=== PATIENT | male | born 1955 | race Caucasian/White ===

== ENCOUNTER 2017-06-29 00:47 | Emergency (ER) | payer MEDICARE, MEDICAID ==
[~2017-06-29] VITALS: Ht 175.3 cm; Wt 79.8 kg
[2017-06-29] MEDS ORDERED: LISINOPRIL5 MG ORAL (00:57)
[2017-06-29] MEDS ORDERED: ATRIPLA TABLET1 EAC1 ORAL (00:58)
[2017-06-29 00:59] VITALS: BP 149/86
[2017-06-29] MEDS ORDERED: PREDNISONE20 MG ORAL (01:50)
[2017-06-29] MEDS ORDERED: PROMETHAZINE-C118 M1 ORAL (01:50)
--- NOTE | 2017-06-29 01:50 | Emergency Room Report ---
History of Present Illness General Chief Complaint: Sore Throat Source: Patient Present Illness [facility] This is a 61-year-old male with no past medical history. He presents with chief complaint of cough and sore throat for the last 3 or 4 days. He seen his primary care Dr. emanuel. He has old cough but is at home was not helping. She been taking hydrocodone and Motrin without helping. Denies any fever or chills. Worse with swallowing coughing. Coughing is nonproductive in nature. Also losing his voice. Also has congestion from his deviated septum surgery. Pain is 9/10. Worse with eating and drinking. Allergies: Coded Allergies: No Known Allergies (Unverified , 06/29/17) Patient History Past Medical History: see triage record, old chart reviewed Past Surgical History: other Pertinent Family History: none Social History: Denies: smoking Immunizations: other Reviewed Nursing Documentation: PMH: Agreed, PSxH: Agreed Nursing Documentation-PMH Hx Hypertension: Yes Review of Systems Eye: Denies: eye pain, blurred vision ENT: Reports: throat pain, Denies: ear pain, nose congestion, throat swelling Respiratory: Reports: cough, Denies: shortness of breath Cardiovascular: Denies: chest pain, palpitations Gastrointestinal: Denies: abdominal pain, diarrhea, nausea, vomiting Musculoskeletal: Denies: back pain, joint pain Skin: Denies: rash Neurological: Denies: headache, numbness Endocrine: Denies: increased thirst, increased urine Hematologic/Lymphatic: Denies: easy bruising All Other Systems: negative except mentioned in HPI Physical Exam Vital Signs Date Time Temp Pulse Resp B/P (MAP) Pulse Ox O2 Delivery O2 Flow Rate FiO2 06/29/17 00:50 98.1 98 16 149/86 99 Room Air vitals normal Sp02 EP Interpretation: reviewed, normal General Appearance: well appearing, no apparent distress, alert Head: normocephalic, atraumatic Eyes: bilateral eye PERRL, bilateral eye EOMI ENT: hearing grossly normal, normal pharynx Neck: full range of motion, supple, no meningismus Respiratory: chest non-tender, lungs clear, normal breath sounds Cardiovascular #1: regular rate, rhythm, no murmur Gastrointestinal: normal bowel sounds, non tender, no mass, no organomegaly, no bruit, non-distended Musculoskeletal: back normal, gait/station normal, normal range of motion Psychiatric: mood/affect normal Skin: warm/dry Medical Decision Making Diagnostic Impression: Primary Impression: Sore throat Additional Impression: URI (upper respiratory infection) Qualified Codes: J06.9 - Acute upper respiratory infection, unspecified; B97.89 - Other viral agents as the cause of diseases classified elsewhere ER Course Patient with a viral upper respiratory infection. No evidence of any strep based on clinical exam. He has no fever. He has no tonsillar exudates or hypertrophy. He also has coughing congestion. This points toward a viral etiology. He started taking medicine for cough but he said his 2-3 years old. We'll write for new prescription. he also has an inhaler at home already.No evidence of bacterial infection. We'll discharge home. Last Vital Signs Date Time Temp Pulse Resp B/P (MAP) Pulse Ox O2 Delivery O2 Flow Rate FiO2 06/29/17 00:59 98.1 98 16 149/86 99 Room Air Status: improved Disposition: HOME, SELF-CARE Condition: Stable Scripts Prednisone* (PREDNISONE*) 20 Mg Tablet 60 MG ORAL DAILY, #15 TAB Prov: HAYDEN HUBER M.D. 06/29/17 Codeine/Promethazine Hcl* (PROMETHAZINE-CODEINE SYRUP*) 118 Ml Syrup 10 ML ORAL Q6H Y for For Cough, #120 ML 0 Refills Prov: HAYDEN HUBER M.D. 06/29/17 Additional Instructions: Followup with your DrKatelyn in 7 days. Return if worse. HAYDEN HUBER M.D. Jun 29, 2017 01:50
[2017-06-29 01:58] VITALS: BP 149/86
== END 2017-06-29 01:58 | disposition home or self-care (01) ==
LOC: EMR 01:31
DX: J02.9 Acute pharyngitis, unspecified (principal); J06.9 Acute upper respiratory infection, unspecified; I10 Essential (primary) hypertension
CPT/HCPCS: 99283

== ENCOUNTER 2017-12-14 18:45 | Inpatient (IN) | payer MEDICAID, MEDICARE ==
[~2017-12-14] VITALS: Ht 172.7 cm; Wt 77.1 kg
[~2017-12-14 18:45] MED LIST: ATRIPLA TABLET1 EAC1 ORAL; LISINOPRIL5 MG ORAL; PREDNISONE20 MG ORAL; PROMETHAZINE-C118 M1 ORAL
[2017-12-14 19:02] VITALS: BP 103/62
[2017-12-14] MEDS ORDERED: Piperacillin/Tazobactam 3.375 GM in NS 110 ML IVPB ONE (19:15)
[2017-12-14 20:08] LABS: BASOPHILS % (AUTO) 0.6 % (0.0-2.0); EOSINOPHILS % (AUTO) 0.5 % (0.0-3.0); HEMATOCRIT 34.4 % (42.0-52.0); HEMOGLOBIN 12.1 G/DL (14.2-18.0); LYMPHOCYTES % (AUTO) 18.5 % (20.0-45.0); MEAN CORPUSCULAR VOLUME 96 FL (80-99); MONOCYTES % (AUTO) 11.5 % (1.0-10.0); NEUTROPHILS % (AUTO) 68.9 % (45.0-75.0); PLATELET COUNT 280 K/UL (150-450); RED BLOOD COUNT 3.58 M/UL (4.70-6.10); RED CELL DISTRIBUTION WIDTH 10.6 % (11.6-14.8); WHITE BLOOD COUNT 14.7 K/UL (4.8-10.8)
[2017-12-14 20:13] LABS: ANION GAP 13 mmol/L (5-15); BLOOD UREA NITROGEN 31 mg/dL (7-18); CALCIUM 9.2 MG/DL (8.5-10.1); CARBON DIOXIDE 18 MMOL/L (21-32); CHLORIDE 103 MMOL/L (98-107); CREATININE 2.4 MG/DL (0.55-1.30); SODIUM 134 MMOL/L (136-145)
[2017-12-14 20:18] LABS: ALANINE AMINOTRANSFERASE 18 U/L (12-78); ALBUMIN 3.5 G/DL (3.4-5.0); ALBUMIN/GLOBULIN RATIO 0.7 (1.0-2.7); ALKALINE PHOSPHATASE 94 U/L (46-116); ASPARTATE AMINO TRANSFERASE 13 U/L (15-37); BILIRUBIN,TOTAL 0.4 MG/DL (0.2-1.0)
[2017-12-14 20:40] LABS: APPEARANCE,URINE SLIGHTLY CLOUDY; BILIRUBIN, URINE NEGATIVE (NEGATIVE); GLUCOSE, URINE (UA) NEGATIVE (NEGATIVE); KETONES,URINE NEGATIVE (NEGATIVE); LEUKOCYTE ESTERASE ,URINE 3+ (NEGATIVE); NITRITE,URINE POSITIVE (NEGATIVE); PH,URINE 5 (4.5-8.0); PROTEIN,URINE 2+ (NEGATIVE); UROBILINOGEN,URINE NORMAL MG/DL (0.0-1.0)
[2017-12-14 20:41] LABS: COLOR,URINE YELLOW
--- NOTE | 2017-12-14 20:41 | Emergency Room Report ---
History of Present Illness General Chief Complaint: Male Urogenital Problems Source: Patient, Medical Record Present Illness HPI 62-year-old male presents ED for evaluation. Patient is here for IV antibiotics. Patient states that he was recently diagnosed with UTI but culture results show multidrug resistance and he was asked to come to the ER for IV antibiotics by his PMD. Denies fevers or chills. Denies flank pain nausea or vomiting. States he was feeling very weak last week and did not drink many fluids. No other aggravating relieving factors. Denies any other associated symptoms Allergies: Coded Allergies: No Known Allergies (Unverified , 06/29/17) Patient History Past Medical History: HTN Past Surgical History: none Pertinent Family History: none Social History: Denies: smoking, alcohol use, drug use Immunizations: UTD Reviewed Nursing Documentation: PMH: Agreed; PSxH: Agreed Nursing Documentation-PMH Past Medical History: No History, Except For Hx Hypertension: Yes Review of Systems All Other Systems: negative except mentioned in HPI Physical Exam Vital Signs Date Time Temp Pulse Resp B/P (MAP) Pulse Ox O2 Delivery O2 Flow Rate FiO2 12/14/17 18:52 97.3 73 18 103/62 96 Room Air 97.3 Sp02 EP Interpretation: reviewed, normal General Appearance: no apparent distress, alert, GCS 15, non-toxic Head: normocephalic, atraumatic Eyes: bilateral eye normal inspection, bilateral eye PERRL ENT: hearing grossly normal, normal pharynx, no angioedema, normal voice Neck: full range of motion, supple/symm/no masses Respiratory: chest non-tender, lungs clear, normal breath sounds, speaking full sentences Cardiovascular #1: regular rate, rhythm, no edema Cardiovascular #2: 2+ carotid (R), 2+ carotid (L), 2+ radial (R), 2+ radial (L) , 2+ dorsalis pedis (R), 2+ dorsalis pedis (L) Gastrointestinal: normal bowel sounds, non tender, soft, non-distended, no guarding, no rebound Rectal: deferred Genitourinary: normal inspection, no CVA tenderness Musculoskeletal: back normal, gait/station normal, normal range of motion, non- tender Neurologic: alert, oriented x3, responsive, motor strength/tone normal, sensory intact, speech normal Psychiatric: judgement/insight normal, memory normal, mood/affect normal, no suicidal/homicidal ideation Reflexes: 3+ bicep (R), 3+ bicep (L), 3+ tricep (R), 3+ tricep (L), 3+ knee (R) , 3+ knee (L) Skin: normal color, no rash, warm/dry, well hydrated Lymphatic: no adenopathy Medical Decision Making Diagnostic Impression: Primary Impression: ESBL (extended spectrum beta-lactamase) producing bacteria infection Additional Impressions: UTI (urinary tract infection) Qualified Codes: N39.0 - Urinary tract infection, site not specified Renal insufficiency ER Course Hospital Course 62-year-old male presenting to ED with generalized weakness, sent here for IV antibiotics Differential diagnoses include: Pneumonia, UTI, sepsis, dehydration, CO/ unstable angina Clinical course Patient placed on stretcher. On front desk monitor with stable vitals are ED course. After initial history and physical, I reviewed patient's culture results. Showed ESBL growing greater than 100,000. Shows sensitivity to few indications including cefepime, Zosyn, ertapenem, imipenem I ordered labs, IV fluids, blood cx, UA Labs - BUN/Cr elevated, noted leukocytosis Given the renal insufficiency, given that patient would require repeat visits to the ED for IV antibiotics I believe it is in patient's best interest to be admitted. Spoke to PMD Dr. Means and he agreed IV Zosyn given. Case discussed with Dr Ghosh and they agreed to admit patient to their service for further care and support I feel this is a highly complex case requiring extensive working including EKG/ Rhythm strip, Xray/CT/US, Blood/urine lab work, repeat exams while in ED, and administration of strong opiates/narcotics for pain control, admission to hospital or close patient follow up. Diagnosis - ESBL, UTI, Renal insufficiency Patient admitted to floor in serious condition Labs Test 12/14/17 19:51 12/14/17 20:30 White Blood Count 14.7 K/UL (4.8-10.8) Red Blood Count 3.58 M/UL (4.70-6.10) Hemoglobin 12.1 G/DL (14.2-18.0) Hematocrit 34.4 % (42.0-52.0) Mean Corpuscular Volume 96 FL (80-99) Mean Corpuscular Hemoglobin 33.8 PG (27.0-31.0) Mean Corpuscular Hemoglobin Concent 35.3 G/DL (32.0-36.0) Red Cell Distribution Width 10.6 % (11.6-14.8) Platelet Count 280 K/UL (150-450) Mean Platelet Volume 5.5 FL (6.5-10.1) Neutrophils (%) (Auto) 68.9 % (45.0-75.0) Lymphocytes (%) (Auto) 18.5 % (20.0-45.0) Monocytes (%) (Auto) 11.5 % (1.0-10.0) Eosinophils (%) (Auto) 0.5 % (0.0-3.0) Basophils (%) (Auto) 0.6 % (0.0-2.0) Sodium Level 134 MMOL/L (136-145) Potassium Level 4.0 MMOL/L (3.5-5.1) Chloride Level 103 MMOL/L (98-107) Carbon Dioxide Level 18 MMOL/L (21-32) Anion Gap 13 mmol/L (5-15) Blood Urea Nitrogen 31 mg/dL (7-18) Creatinine 2.4 MG/DL (0.55-1.30) Estimat Glomerular Filtration Rate 27.8 mL/min (>60) Glucose Level 118 MG/DL (74-106) Calcium Level 9.2 MG/DL (8.5-10.1) Total Bilirubin 0.4 MG/DL (0.2-1.0) Aspartate Amino Transf (AST/SGOT) 13 U/L (15-37) Alanine Aminotransferase (ALT/SGPT) 18 U/L (12-78) Alkaline Phosphatase 94 U/L (46-116) Total Protein 8.6 G/DL (6.4-8.2) Albumin 3.5 G/DL (3.4-5.0) Globulin 5.1 g/dL Albumin/Globulin Ratio 0.7 (1.0-2.7) Last Vital Signs Date Time Temp Pulse Resp B/P (MAP) Pulse Ox O2 Delivery O2 Flow Rate FiO2 12/14/17 19:02 97.3 73 18 103/62 96 Room Air 97.3 Status: improved Disposition: ADMITTED INPATIENT Condition: Serious Referrals: NON PHYSICIAN (PCP) Bert Peacock MD December 14, 2017 20:41
[2017-12-14 21:00] VITALS: BP 118/74
[2017-12-14 21:50] VITALS: BP 116/66
[2017-12-14] MEDS ORDERED: Norco 5mg/325mg tab ORAL PRN (22:45)
[2017-12-14] MEDS ORDERED: HYDROcodone/Acetamin 10/325 tab ORAL PRN (22:45)
[2017-12-15] VITALS: BP 114/72
[2017-12-15] MEDS: Lisinopril 2.5mg tab ORAL SCH ×2 (00:16→20:24)
[2017-12-15] MEDS ORDERED: AMBIEN5 MG ORAL (00:38)
[2017-12-15] MEDS: Zolpidem 5mg tab ORAL PRN (01:07)
[2017-12-15] MEDS: Zoysn 3.37gm in NS 100ML IVPB SCH ×2 (03:58→12:34)
[2017-12-15 04:00] VITALS: BP 116/67
[2017-12-15 07:44] LABS: BASOPHILS % (AUTO) 0.5 % (0.0-2.0); EOSINOPHILS % (AUTO) 0.3 % (0.0-3.0); HEMATOCRIT 32.9 % (42.0-52.0); HEMOGLOBIN 11.4 G/DL (14.2-18.0); LYMPHOCYTES % (AUTO) 18.3 % (20.0-45.0); MEAN CORPUSCULAR VOLUME 98 FL (80-99); PLATELET COUNT 263 K/UL (150-450); RED BLOOD COUNT 3.36 M/UL (4.70-6.10); RED CELL DISTRIBUTION WIDTH 10.6 % (11.6-14.8); WHITE BLOOD COUNT 12.9 K/UL (4.8-10.8)
[2017-12-15 08:00] VITALS: BP 103/65
[2017-12-15 08:01] LABS: ANION GAP 12 mmol/L (5-15); BLOOD UREA NITROGEN 29 mg/dL (7-18); CALCIUM 8.9 MG/DL (8.5-10.1); CARBON DIOXIDE 20 MMOL/L (21-32); CHLORIDE 103 MMOL/L (98-107); CREATININE 2.3 MG/DL (0.55-1.30); POTASSIUM 4.4 MMOL/L (3.5-5.1); SODIUM 135 MMOL/L (136-145)
[2017-12-15] MEDS: Docusate 100mg cap ORAL SCH ×2 (09:21→17:49)
[2017-12-15] MEDS: Heparin 5000 units/ml inj SUBQ SCH ×2 (09:22→20:25)
--- NOTE | 2017-12-15 09:23 | Consultation ---
Consult Note Assessment/Plan DICT # [id number] JOEY GUTIERREZ M.D. December 15, 2017 09:23
--- NOTE | 2017-12-15 10:57 | Consultation ---
Consult Note Assessment/Plan Renal consult dictated # [id number] Sriram Tesfaye MD December 15, 2017 10:57
--- NOTE | 2017-12-15 11:15 | Diagnostic Imaging Report ---
Indication: Chest pain Technique: One view of the chest Comparison: none Findings: Lungs and pleural spaces are clear. Heart size is normal. Inspiration is somewhat suboptimal Impression: No acute process
[2017-12-15 12:00] VITALS: BP 116/64
[2017-12-15] MEDS ORDERED: CYMBALTA60 MG ORAL (12:49)
--- NOTE | 2017-12-15 15:09 | History and Physical ---
History of Present Illness General Date patient seen: December 15, 2017 Reason for Hospitalization: Male Urogenital Problems Present Illness HPI This is a 62 y/o male with a PMH of HIV (viral load undetectable, CD 4>1000) who presents to the ED for ESBL UTI. Patient states that he had gone to his PCP for dysuria and was diagnosed with a UTI. Urine culture came back positive for ESBL, which was sensitive to carbapenams. Patient was advised to come to the ED for further evaluation. Patient was started on IV zosyn and IVF. Patient was also noted to have an elevated Cr with an unknown baseline. Patient is currently compliant with his HIV medications. Denies chest pain, sob, dysuria, hematuria, flank pain, n/v, abdominal pain. Reports history of bilateral nephrolithiasis, which passed on their own. PMH: HIV PSxH: none Allergies: Coded Allergies: No Known Allergies (Unverified , 06/29/17) Medication History Scheduled Duloxetine Hcl* (Cymbalta*), 60 MG ORAL QHS, (Reported) Efavirenz/Emtricitab/Tenofovir (Atripla), 1 TAB ORAL DAILY, (Reported) Lisinopril (Lisinopril*), 5 MG ORAL DAILY, (Reported) Prednisone* (Prednisone*), 60 MG ORAL DAILY Scheduled PRN Codeine/Promethazine Hcl* (Promethazine-Codeine Syrup*), 10 ML ORAL Q6H PRN for For Cough Zolpidem Tartrate* (Ambien*), 10 MG ORAL BEDTIME PRN for Insomnia, (Reported) Patient History History Provided By: Patient Healthcare decision maker Resuscitation status Advanced Directive on File Review of Systems All Other Systems: negative except mentioned in HPI Physical Exam General Appearance: no apparent distress, alert HEENT: normocephalic, atraumatic Neck: non-tender, normal alignment, supple Respiratory/Chest: chest wall non-tender, lungs clear, normal breath sounds Cardiovascular/Chest: normal peripheral pulses, normal rate, regular rhythm Abdomen: normal bowel sounds, non tender, soft Genitourinary/Rectal: other - no flank pain Extremities: normal range of motion, non-tender Skin Exam: normal pigmentation, warm/dry 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, no motor/sensory deficits, alert, oriented x 3 Last 24 Hour Vital Signs Date Time Temp Pulse Resp B/P (MAP) Pulse Ox O2 Delivery O2 Flow Rate FiO2 12/15/17 13:44 99.0 12/15/17 12:45 99.0 12/15/17 12:00 97.0 73 20 116/64 98 Room Air 97.0 12/15/17 08:00 97.7 86 20 103/65 95 Room Air 97.7 12/15/17 04:00 99.0 98 20 116/67 98 99.0 12/15/17 00:16 114/72 12/15/17 00:00 97.9 78 20 114/72 97 97.9 12/14/17 21:55 97.3 74 22 116/66 100 Room Air 97.3 12/14/17 21:50 74 22 116/66 100 Room Air 12/14/17 21:00 69 16 118/74 100 Room Air 12/14/17 19:02 97.3 73 18 103/62 96 Room Air 97.3 12/14/17 18:52 97.3 73 18 103/62 96 Room Air 97.3 Intake and Output 12/14/17 12/15/17 19:00 07:00 Intake Total 510 ml Balance 510 ml Intake Oral 300 ml IV Total 210 ml # Voids 3 Laboratory Tests Test 12/14/17 19:51 12/14/17 20:30 12/14/17 20:40 12/15/17 06:50 White Blood Count 14.7 K/UL (4.8-10.8) H 12.9 K/UL (4.8-10.8) H Red Blood Count 3.58 M/UL (4.70-6.10) L 3.36 M/UL (4.70-6.10) L Hemoglobin 12.1 G/DL (14.2-18.0) L 11.4 G/DL (14.2-18.0) L Hematocrit 34.4 % (42.0-52.0) L 32.9 % (42.0-52.0) L Mean Corpuscular Volume 96 FL (80-99) 98 FL (80-99) Mean Corpuscular Hemoglobin 33.8 PG (27.0-31.0) H 33.9 PG (27.0-31.0) H Mean Corpuscular Hemoglobin Concent 35.3 G/DL (32.0-36.0) 34.6 G/DL (32.0-36.0) Red Cell Distribution Width 10.6 % (11.6-14.8) L 10.6 % (11.6-14.8) L Platelet Count 280 K/UL (150-450) 263 K/UL (150-450) Mean Platelet Volume 5.5 FL (6.5-10.1) L 5.5 FL (6.5-10.1) L Neutrophils (%) (Auto) 68.9 % (45.0-75.0) 71.0 % (45.0-75.0) Lymphocytes (%) (Auto) 18.5 % (20.0-45.0) L 18.3 % (20.0-45.0) L Monocytes (%) (Auto) 11.5 % (1.0-10.0) H 10.0 % (1.0-10.0) Eosinophils (%) (Auto) 0.5 % (0.0-3.0) 0.3 % (0.0-3.0) Basophils (%) (Auto) 0.6 % (0.0-2.0) 0.5 % (0.0-2.0) Sodium Level 134 MMOL/L (136-145) L 135 MMOL/L (136-145) L Potassium Level 4.0 MMOL/L (3.5-5.1) 4.4 MMOL/L (3.5-5.1) Chloride Level 103 MMOL/L (98-107) 103 MMOL/L (98-107) Carbon Dioxide Level 18 MMOL/L (21-32) L 20 MMOL/L (21-32) L Anion Gap 13 mmol/L (5-15) 12 mmol/L (5-15) Blood Urea Nitrogen 31 mg/dL (7-18) H 29 mg/dL (7-18) H Creatinine 2.4 MG/DL (0.55-1.30) H 2.3 MG/DL (0.55-1.30) H Estimat Glomerular Filtration Rate 27.8 mL/min (>60) 29.2 mL/min (>60) Glucose Level 118 MG/DL (74-106) H 126 MG/DL (74-106) H Calcium Level 9.2 MG/DL (8.5-10.1) 8.9 MG/DL (8.5-10.1) Total Bilirubin 0.4 MG/DL (0.2-1.0) Aspartate Amino Transf (AST/SGOT) 13 U/L (15-37) L Alanine Aminotransferase (ALT/SGPT) 18 U/L (12-78) Alkaline Phosphatase 94 U/L (46-116) Total Protein 8.6 G/DL (6.4-8.2) H Albumin 3.5 G/DL (3.4-5.0) Globulin 5.1 g/dL Albumin/Globulin Ratio 0.7 (1.0-2.7) L Urine Color Yellow Urine Appearance Slightly cloudy Urine pH 5 (4.5-8.0) Urine Specific [place] 1.020 (1.005-1.035) Urine Protein 2+ (NEGATIVE) H Urine Glucose (UA) Negative (NEGATIVE) Urine Ketones Negative (NEGATIVE) Urine Occult Blood 3+ (NEGATIVE) H Urine Nitrite Positive (NEGATIVE) H Urine Bilirubin Negative (NEGATIVE) Urine Urobilinogen Normal MG/DL (0.0-1.0) Urine Leukocyte Esterase 3+ (NEGATIVE) H Urine RBC 2-4 /HPF (0 - 0) H Urine WBC 10-15 /HPF (0 - 0) H Urine Squamous Epithelial Cells None /LPF (NONE/OCC) Urine Amorphous Sediment Few /LPF (NONE) H Urine Bacteria Moderate /HPF (NONE) H Lactic Acid Level 0.60 mmol/L (0.66-2.22) L Microbiology Date/Time Source Procedure Growth Status 12/14/17 20:30 Indwelling Cath Urine Culture - Preliminary Gram Negative Bacillus 1 Resulted Height (Feet): 5 Height (Inches): 8.00 Weight (Pounds): 170 Medications Current Medications Medications (Trade) Dose Ordered Sig/Lorena Route PRN Reason Start Time Stop Time Status Last Admin Dose Admin Acetaminophen (Tylenol) 650 mg Q6H PRN ORAL Mild Pain/Temp > 100.5 12/14/17 22:45 01/13/18 22:44 Acetaminophen/ Hydrocodone Bitart ([place] 10/325) 1 tab Q4H PRN ORAL For Moderate Pain 12/15/17 14:28 12/22/17 14:27 Docusate Sodium (Colace) 100 mg TWICE A DAY ORAL 12/15/17 09:00 01/14/18 08:59 12/15/17 09:21 Ertapenem 1 gm/ Sodium Chloride 110 ml @ 220 mls/hr Q24H IVPB 12/15/17 16:00 12/16/17 15:59 Heparin Sodium (Porcine) (Heparin 5000 units/ml) 5,000 units EVERY 12 HOURS SUBQ 12/15/17 09:00 01/14/18 08:59 12/15/17 09:22 Lisinopril (Zestril) 5 mg BEDTIME ORAL 12/14/17 23:08 01/13/18 23:07 12/15/17 00:16 Morphine Sulfate (Morphine Sulfate) 4 mg Q4H PRN IVP For Severe Pain 12/15/17 14:29 12/22/17 14:28 Non-Formulary Medication (Non-Formulary Med) 1 ea BEDTIME ORAL 12/15/17 21:00 01/14/18 20:59 UNV Ondansetron HCl (Zofran) 4 mg EVERY 4 HOURS PRN IVP Nausea & Vomiting 12/14/17 22:45 01/13/18 22:44 Sodium Chloride 1,000 ml @ 100 mls/hr Q10H IV 12/14/17 22:45 01/13/18 22:44 12/15/17 09:21 Zolpidem Tartrate (Ambien) 5 mg HSPRN PRN ORAL Insomnia 12/15/17 00:45 12/22/17 00:44 12/15/17 01:07 Assessment/Plan Problem List: (1) ESBL (extended spectrum beta-lactamase) producing bacteria infection ICD Codes: A49.9 - Bacterial infection, unspecified; Z16.12 - Extended spectrum beta lactamase (ESBL) resistance SNOMED: 550866540, 266844640 (2) Renal insufficiency ICD Codes: N28.9 - Disorder of kidney and ureter, unspecified SNOMED: 956728120, 003543820 (3) Sepsis ICD Codes: A41.9 - Sepsis, unspecified organism SNOMED: 63918538 (4) HIV (human immunodeficiency virus infection) ICD Codes: B20 - Human immunodeficiency virus [HIV] disease SNOMED: 96267480 (5) UTI (urinary tract infection) ICD Codes: N39.0 - Urinary tract infection, site not specified SNOMED: 97010622, 944628684 Qualifiers: Qualified Codes: N39.0 - Urinary tract infection, site not specified Status: stable, progressing Assessment/Plan - Admit to inpatient - ID and nephrology consulted - IV ertapenam 1g qd x 10 days - F/u repeat urine cx in hospital - F/u urine studies - F/u renal ultrasound - Attempted to contact patient's PCP, Dr Ramón Means [phone] for patient' s baseline Cr - Continue home HIV meds - Check lymphocyte panel/CD 4 count - IVF - pain control and supportive care DVT Prophylaxis: SCD, HSQ Code Status: Full Hospital Classification Declaration: Based on this initial evaluation, and depending on the patient's clinical course, I anticipate that this patient will require hospitalization for 2-3 days for ESBL UTI, sepsis, and close respiratory /hemodynamic monitoring. Disposition: Once the patient is stable to leave the hospital, I anticipate the patient will likely be discharged to the following environment: home with HH vs SNF I spent 71 minutes on this patient's case, and 41 minutes were dedicated to counseling and/or care coordination. Discussed with patient/family, nursing staff, SW/CM, nephrology, and ID regarding clinical status, treatment course, and disposition planning. Time of note may not reflect time of encounter. Surekha Bailey NP December 15, 2017 15:09
[2017-12-15] MEDS ORDERED: Ertapenem 1 GM in NS 110 ML IVPB SCH (16:00)
--- NOTE | 2017-12-15 17:15 | Consultation ---
DATE OF CONSULTATION: 12/15/2017 PULMONARY CONSULTATION CONSULTING PHYSICIAN: Kishan Ghosh M.D. REFERRING PHYSICIAN: Efra Mohan M.D. REASON FOR CONSULTATION: Dyspnea. HISTORY OF PRESENT ILLNESS: The patient is a 62-year-old male with history of HIV (viral load undetectable and CD4 count over 1000) on Atripla, presenting with complicated UTI. Approximately 4 days ago, he started having dysuria, urgency, and frequency. He saw his PMD who started him on Cipro. His symptoms persisted, so he called his PMD to follow up on his culture. Apparently, he had a complicated E. coli resistant to many antibiotics and only sensitive to cefepime, Zosyn, ertapenem, and imipenem. There was ESBL. He also had an acute kidney injury, so the patient was told to go to the ER for further evaluation and management. The patient has had mild dyspnea, but no cough or shortness of breath per se. No fevers, chills, headache, dizziness, nausea, vomiting, diarrhea, constipation. No other complaints. Since he has been in the hospital, his T-max has been 99. He has been saturating 100% on room air and has otherwise been hemodynamically stable. His white count was 14.7 on presentation and 12.9, now. He also had an acute kidney injury with creatinine of 2.4 on presentation and is 2.3 currently. His urine culture grew gram-negative bacillus. Here, we have the outside culture for review as well. PAST MEDICAL HISTORY: HIV as described above. PAST SURGICAL HISTORY: Bilateral carpal tunnel. ALLERGIES: No known drug allergies. MEDICATIONS: Prior to admission medications, codeine, promethazine, Atripla, lisinopril, prednisone, Ambien. SOCIAL HISTORY: No tobacco or alcohol use. He is a former drug addict, not currently. FAMILY HISTORY: Noncontributory. REVIEW OF SYSTEMS: Negative other than history of present illness. PHYSICAL EXAMINATION: VITAL SIGNS: Temperature 99, pulse 98, blood pressure 116/67, respiratory rate 20. GENERAL: He is a well-developed, well-nourished male, in no acute distress. Awake, alert, and oriented x3. HEENT: Normocephalic and atraumatic. Oropharynx is clear. Moist mucous membranes. NECK: Supple without lymphadenopathy or JVD. CHEST: Clear to auscultation bilaterally. HEART: Regular rate and rhythm. ABDOMEN: Soft, nontender, and nondistended. EXTREMITIES: No cyanosis, clubbing, or edema. ANCILLARY DATA: White count 12.9, hemoglobin 11.4, and platelet count 263,000. Sodium 135, potassium 4.4, chloride 103, bicarbonate 20, BUN 29, creatinine 2.3, glucose 126. Urinalysis, 2+ protein, 3+ blood, positive nitrites, 3+ leukocyte esterase, moderate bacteria. Urine culture, gram-negative bacilli. Outside culture, ESBL. ASSESSMENT: The patient is a 62-year-old male presenting with mild dyspnea in the setting of a complicated ESBL UTI. He is stable from a respiratory standpoint and I suspect his mild dyspnea is secondary to urosepsis and the patient is 100% on room air. For completeness, we will check a chest x-ray. PROBLEM LIST: 1. Complicated ESBL UTI. 2. Urosepsis. 3. Mild dyspnea, likely secondary to above. 4. Stable respiratory dynamics. 5. HIV, on Atripla (CD4 count greater than 1000, viral load undetectable). 6. Hypertension. 7. Acute kidney injury. TREATMENT PLAN: 1. Chest x-ray. 2. Monitor respiratory status. 3. Continue Zosyn for now. 4. Follow up cultures. 5. ID consult. 6. IV fluid hydration. 7. Monitor renal function. 8. Renal consultation. 9. DVT prophylaxis. Heparin subcutaneous. Dr. Mohan, thank you for allowing me to assist in the care of your patient. If I may be of any assistance in the care of this patient, please do not hesitate to ask. Dixie Patton JOB#: [id number] CC:
[2017-12-15 20:00] VITALS: BP 128/88
--- NOTE | 2017-12-15 20:43 | Infectious Diseases Prog Note ---
Assessment/Plan Assessment/Plan Full consult dictated: A) 1) gram neg uti, hx esbl e.coli uti, ? sepsis, leukocytosis, sirs 2) hiv - viral load undetectable, cd4 > 1000 3) pmh noted P) 1) ertapenem 2) check urine culture 3) atripla - components to be given 4) thank you Subjective Allergies: Coded Allergies: No Known Allergies (Unverified , 06/29/17) Objective Vital Signs Last 24 Hour Vital Signs Date Time Temp Pulse Resp B/P (MAP) Pulse Ox O2 Delivery O2 Flow Rate FiO2 12/15/17 20:24 128/88 12/15/17 13:44 99.0 12/15/17 12:45 99.0 12/15/17 12:00 97.0 73 20 116/64 98 Room Air 97.0 12/15/17 08:00 97.7 86 20 103/65 95 Room Air 97.7 12/15/17 04:00 99.0 98 20 116/67 98 99.0 12/15/17 00:16 114/72 12/15/17 00:00 97.9 78 20 114/72 97 97.9 12/14/17 21:55 97.3 74 22 116/66 100 Room Air 97.3 12/14/17 21:50 74 22 116/66 100 Room Air 12/14/17 21:00 69 16 118/74 100 Room Air Height (Feet): 5 Height (Inches): 8.00 Weight (Pounds): 170 Microbiology Date/Time Source Procedure Growth Status 12/14/17 20:30 Indwelling Cath Urine Culture - Preliminary Gram Negative Bacillus 1 Resulted Laboratory Tests Test 12/14/17 20:40 12/15/17 06:50 12/15/17 17:00 Lactic Acid Level 0.60 mmol/L (0.66-2.22) L White Blood Count 12.9 K/UL (4.8-10.8) H Red Blood Count 3.36 M/UL (4.70-6.10) L Hemoglobin 11.4 G/DL (14.2-18.0) L Hematocrit 32.9 % (42.0-52.0) L Mean Corpuscular Volume 98 FL (80-99) Mean Corpuscular Hemoglobin 33.9 PG (27.0-31.0) H Mean Corpuscular Hemoglobin Concent 34.6 G/DL (32.0-36.0) Red Cell Distribution Width 10.6 % (11.6-14.8) L Platelet Count 263 K/UL (150-450) Mean Platelet Volume 5.5 FL (6.5-10.1) L Neutrophils (%) (Auto) 71.0 % (45.0-75.0) Lymphocytes (%) (Auto) 18.3 % (20.0-45.0) L Monocytes (%) (Auto) 10.0 % (1.0-10.0) Eosinophils (%) (Auto) 0.3 % (0.0-3.0) Basophils (%) (Auto) 0.5 % (0.0-2.0) Sodium Level 135 MMOL/L (136-145) L Potassium Level 4.4 MMOL/L (3.5-5.1) Chloride Level 103 MMOL/L (98-107) Carbon Dioxide Level 20 MMOL/L (21-32) L Anion Gap 12 mmol/L (5-15) Blood Urea Nitrogen 29 mg/dL (7-18) H Creatinine 2.3 MG/DL (0.55-1.30) H Estimat Glomerular Filtration Rate 29.2 mL/min (>60) Glucose Level 126 MG/DL (74-106) H Calcium Level 8.9 MG/DL (8.5-10.1) Urine Random Sodium Pending Urine Creatinine Pending Current Medications Medications (Trade) Dose Ordered Sig/Lorena Route PRN Reason Start Time Stop Time Status Last Admin Dose Admin Acetaminophen (Tylenol) 650 mg Q6H PRN ORAL Mild Pain/Temp > 100.5 12/14/17 22:45 01/13/18 22:44 Acetaminophen/ Hydrocodone Bitart ([place] 10/325) 1 tab Q4H PRN ORAL For Moderate Pain 12/15/17 14:28 12/22/17 14:27 Docusate Sodium (Colace) 100 mg TWICE A DAY ORAL 12/15/17 09:00 01/14/18 08:59 12/15/17 17:49 Ertapenem 1 gm/ Sodium Chloride 110 ml @ 220 mls/hr Q24H IVPB 12/16/17 16:00 12/17/17 15:59 UNV Heparin Sodium (Porcine) (Heparin 5000 units/ml) 5,000 units EVERY 12 HOURS SUBQ 12/15/17 09:00 01/14/18 08:59 12/15/17 20:25 Lisinopril (Zestril) 5 mg BEDTIME ORAL 12/14/17 23:08 01/13/18 23:07 12/15/17 20:24 Morphine Sulfate (Morphine Sulfate) 4 mg Q4H PRN IVP For Severe Pain 12/15/17 14:29 12/22/17 14:28 Non-Formulary Medication (Non-Formulary Med) 1 ea BEDTIME ORAL 12/15/17 21:00 01/14/18 20:59 UNV Ondansetron HCl (Zofran) 4 mg EVERY 4 HOURS PRN IVP Nausea & Vomiting 12/14/17 22:45 01/13/18 22:44 Sodium Chloride 1,000 ml @ 100 mls/hr Q10H IV 12/14/17 22:45 01/13/18 22:44 12/15/17 17:50 Zolpidem Tartrate (Ambien) 5 mg HSPRN PRN ORAL Insomnia 12/15/17 00:45 12/22/17 00:44 12/15/17 01:07 Ramu Hodges MD December 15, 2017 20:43
[2017-12-15] MEDS ORDERED: Emtricitabine 200mg tab ORAL SCH (21:00)
--- NOTE | 2017-12-15 21:15 | Consultation ---
DATE OF CONSULTATION: 12/15/2017 NEPHROLOGY CONSULTATION CONSULTING PHYSICIAN: Sriram Tesfaye M.D. REFERRING PHYSICIAN: Kishan Ghosh M.D. REASON FOR CONSULTATION: Renal failure. HISTORY OF PRESENT ILLNESS: This is a 62-year-old white male, who was sent to the ER for ESBL multi-drug resistant urinary tract infection with E. coli. The patient has been feeling fatigued and has not had any energy recently. He was found to have elevated BUN and creatinine to 31 and 2.4 upon admission yesterday. Today, the BUN is 29 and creatinine 2.3. The patient denies any previous history of kidney disease except that he has had kidney stones bilaterally. He said that the last time was long time ago. PAST MEDICAL HISTORY: Also includes history of hypertension. History of HIV and hepatitis C, which was treated with medications and cured. MEDICATIONS: Reviewed in the EMR. SOCIAL HISTORY: The patient lives at home. No history of smoking or alcohol abuse. He is an event sales assistant. ALLERGIES: No known drug allergies. REVIEW OF SYSTEMS: Basically negative except above. He did have some problems urination before. PHYSICAL EXAMINATION: GENERAL: The patient is a 62-year-old male, in no acute distress. VITAL SIGNS: Blood pressure 116/67, pulse is 98, respiratory rate is 20, and temperature 99 degrees. HEENT: [place] conjunctivae. Anicteric sclerae. NECK: Supple. LUNGS: Clear to auscultation. HEART: S1 and S2 without murmurs or rubs. ABDOMEN: Soft and nontender. EXTREMITIES: No cyanosis or edema. LABORATORY AND DIAGNOSTIC DATA: Laboratory findings, the chemistry panel shows serum sodium 135, potassium 4.4, chloride 103, CO2 20, BUN is 29, creatinine 2.3, glucose is 126, and calcium is 8.9. CBC shows a WBC of 12.9, hematocrit 32.9, hemoglobin 11.4, and platelets 263,000. UA shows 2+ protein, 2 to 4 rbcs, 10 to 15 wbcs per high power field, and bacteria. Urine culture shows Gram-negative bacilli, more than 100,000. ASSESSMENT: This is a 62-year-old male, who was admitted with ESBL urinary tract infection E. coli. The patient has renal failure with unknown baseline. He may have acute renal failure as a result of prerenal azotemia, ATN is another possibility, obstructive uropathy less likely and finally could have HIV nephropathy, although his HIV has been under control for many years now. Drug-induced interstitial nephritis is also in the differential diagnosis. PLAN: Urine studies will be done including urine sodium and urine creatinine. A kidney ultrasound. I will order a serum PTH level to see if the patient has secondary hyperparathyroidism. Chemistry panel will be followed closely and further recommendations will be given. The patient is to be on IV hydration at this point. Thank you very much, Dr. Ghosh, for this consultation. Sriram Tesfaye M.D. DR: ROBERT JOB#: [id number] CC:
[2017-12-15] MEDS: Efavirenz 200mg cap ORAL SCH (21:29)
[2017-12-15] MEDS: Morphine Sulfate 4mg/ml Inj IVP PRN (22:04)
[2017-12-16] VITALS: BP 118/70
[2017-12-16] MEDS: Zolpidem 5mg tab ORAL PRN (01:14)
--- NOTE | 2017-12-16 03:45 | Consultation ---
DATE OF CONSULTATION: 12/15/2017 INFECTIOUS DISEASE CONSULTATION CONSULTING PHYSICIAN: Ramu Hodges M.D. ATTENDING PHYSICIAN: Kishan Ghosh M.D. REFERRING PHYSICIAN: Kishan Ghosh M.D. HISTORY OF PRESENT ILLNESS: This is a very pleasant 62-year-old male, who has history of human immunodeficiency virus with his T-cell count over 1000 and viral load is undetectable. He is currently on Atripla. The patient is treated by his primary MD for urinary tract infection in the outpatient setting, however, it seemed that he had more resistant organism per the records is ESBL E. coli. The patient was told to come to the ER at [facility] because he had chills. The patient came in with likely complicated urinary tract infection with possible sepsis and leukocytosis. Infectious Disease consultation was requested for antibiotic management because of history of ESBL E. coli urinary tract infection and gram-negative urinary tract infection and possible sepsis. The patient is currently on ertapenem, which I will continue at this time. Urine culture here at [facility] is pending. Per the records, his E. coli was sensitive to cefepime, Zosyn, ertapenem, and imipenem. MAR was noted. Orders were noted. Notes and records were reviewed. PAST MEDICAL HISTORY: The patient's past medical history includes the history of the following. He has history of human immunodeficiency virus with a viral load undetectable and CD4 count over 1000. He has history of an outpatient setting with urinary tract infection, but he did not have any history of UTIs in the past. He does have acute kidney injury and elevated creatinine. He also is anemic. He does have history of hypertension also. He is also on Cymbalta and prednisone. I am not clear what is the reason for the Cymbalta. He does have hypertension, but no mention diabetes. MEDICATIONS: Upon reviewing the MAR, he is on the following medication. He is on ertapenem. He is on Sustiva. He is on tenofovir. He is on morphine. He is on hydrocodone. He is on heparin. He is on docusate. He is on emtricitabine or tenofovir. He is on zolpidem, lisinopril, sodium chloride, acetaminophen, and Zofran. Outside medications noted and reconciliated. ALLERGIES: No known drug allergies. SOCIAL HISTORY: Negative for smoking, alcohol, or drug abuse. FAMILY HISTORY: Noncontributory. Negative for exposure to tuberculosis or cancer. REVIEW OF SYSTEMS: CONSTITUTIONAL: The patient came in with chills. He currently does not have fevers. His chills are better with antibiotics. HEAD AND NECK: No mention of thrush, dysphagia, sinus tenderness, or neck stiffness. No change in vision. CARDIAC: No chest pain or palpitations. GASTROINTESTINAL: No nausea, vomiting, or diarrhea. GENITOURINARY: He has dysuria and frequency. No CVA tenderness. PULMONARY: No significant congestion, shortness of breath, hemoptysis, or secretions. SKIN: No rash. EXTREMITIES: No extremity pain. NEUROLOGIC: No seizures. No night sweats or weight loss. He came in with chills, but no fevers. The patient's chills have improved with antibiotics. PHYSICAL EXAMINATION: VITAL SIGNS: Temp is 97.0, pulse rate 73, respiratory rate 20, blood pressure 116/64, and saturation 98%. Heart rate has been as high as 98. Respiratory rate has been as high as 22. GENERAL: Alert and responsive, no distress. HEAD AND NECK: Oral exam, no thrush. Eye exam, no icterus. Neck is supple. No JVD. Normocephalic. No facial droop. No neck stiffness. LUNGS: Clear bilaterally. No rhonchi or rales. HEART: Regular. No gallop or murmur. ABDOMEN: Soft. Positive bowel sounds. Nontender. No organomegaly. SKIN: No rash. MUSCULOSKELETAL: No effusion. No septic arthritis. EXTREMITIES: Lower extremity exam, no cellulitis. PERIPHERAL VASCULAR: No cyanosis. NEUROLOGIC: Intact and nonfocal. LINES: Line sites without phlebitis. GENITOURINARY: He has no [place]. LABORATORY DATA: White count on admission 14.7 and white count now is 12.9 and hemoglobin 11.4. The patient's creatinine is 2.3. The patient's urinalysis had 3+ leukocyte esterase, 10 to 15 white blood cells, and moderate bacteria. CULTURES: Urine culture has gram-negative organisms . Per the records outside, urine culture had E. coli, ESBL. Sensitivities were noted. UA had positive nitrite. Chest x-ray is negative. No acute disease noted or reported. ASSESSMENT AND PLAN: 1. The patient has complicated urinary tract infection with gram-negative urinary tract infection currently on urine culture. The patient has history of extended spectrum beta-lactamases Escherichia coli urinary tract infection, which is probably has it again since he was on Cipro as an outpatient setting and would be resistant to that. I will continue ertapenem to cover extended spectrum beta-lactamases Escherichia coli urinary tract infection and gram-negative urinary tract infection. The patient has possible sepsis with elevated white count and systemic inflammatory response syndrome criteria, heart rate over 90, respiratory rate over 20, and white count over 12. Continue antibiotics ertapenem. Check final urine culture. Check followup labs. Watch creatinine. Watch white cell count. 2. The patient has human immunodeficiency virus. At this point, currently he has an excellent T-cell count over 1000 and viral load undetectable. The patient does not have Atripla available at home at this time. I discussed with pharmacy here at [facility]. We do not have Atripla tablets, but we will give the components of it including efavirenz, tenofovir, and emtricitabine. 3. Acute kidney injury with elevated creatinine. 4. Anemia. 5. The patient is on Cymbalta, unclear the exact reason, 6. Hypertension. Continue blood pressure treatment primary per primary. 7. No known allergies. 8. Social history is negative. 9. Family history is noncontributory. 10. MAR was noted. 11. Case was discussed with RN. 12. Case was discussed with pharmacy. 13. Continue treatment per primary consultants. 14. Notes and records were noted. 15. Orders were entered. Ramu Hodges M.D. DR: KARLA JOB#: [id number] CC: BRITTNEY
[2017-12-16 04:00] VITALS: BP 99/54
[2017-12-16 08:00] VITALS: BP 108/63
[2017-12-16] MEDS: Heparin 5000 units/ml inj SUBQ SCH ×2 (08:18→20:44)
[2017-12-16] MEDS: Docusate 100mg cap ORAL SCH ×2 (08:18→18:00)
[2017-12-16] MEDS ORDERED: Tubing IV Secondary IV ONE (10:50)
[2017-12-16 11:00] LABS: BASOPHILS % (AUTO) 0.8 % (0.0-2.0); EOSINOPHILS % (AUTO) 1.1 % (0.0-3.0); HEMATOCRIT 32.5 % (42.0-52.0); HEMOGLOBIN 11.1 G/DL (14.2-18.0); LYMPHOCYTES % (AUTO) 21.7 % (20.0-45.0); MEAN CORPUSCULAR VOLUME 98 FL (80-99); MONOCYTES % (AUTO) 7.2 % (1.0-10.0); NEUTROPHILS % (AUTO) 69.1 % (45.0-75.0); PLATELET COUNT 284 K/UL (150-450); RED BLOOD COUNT 3.32 M/UL (4.70-6.10); RED CELL DISTRIBUTION WIDTH 10.8 % (11.6-14.8); WHITE BLOOD COUNT 10.3 K/UL (4.8-10.8)
[2017-12-16 11:24] LABS: ANION GAP 10 mmol/L (5-15); BLOOD UREA NITROGEN 26 mg/dL (7-18); CARBON DIOXIDE 22 MMOL/L (21-32); CHLORIDE 106 MMOL/L (98-107); POTASSIUM 3.9 MMOL/L (3.5-5.1); SODIUM 138 MMOL/L (136-145)
[2017-12-16 12:00] VITALS: BP 104/65
--- NOTE | 2017-12-16 14:21 | Internal Med Progress Note ---
Subjective Physician Name Trinh Zhang Attending Physician Kishan Ghosh M.D. Current Medications Medications (Trade) Dose Ordered Sig/Lorena Route PRN Reason Start Time Stop Time Status Last Admin Dose Admin Acetaminophen (Tylenol) 650 mg Q6H PRN ORAL Mild Pain/Temp > 100.5 12/14/17 22:45 01/13/18 22:44 12/16/17 01:14 Acetaminophen/ Hydrocodone Bitart ([place] 10/325) 1 tab Q4H PRN ORAL For Moderate Pain 12/15/17 14:28 12/22/17 14:27 Docusate Sodium (Colace) 100 mg TWICE A DAY ORAL 12/15/17 09:00 01/14/18 08:59 12/15/17 17:49 Efavirenz (Sustiva) 600 mg Q24H ORAL 12/15/17 21:00 01/14/18 20:59 12/15/17 21:29 Emtricitabine/ Tenofovir ([place] 200/ 300mg) 1 tab Q48H ORAL 12/15/17 21:00 01/14/18 20:59 12/15/17 21:29 Ertapenem 1 gm/ Sodium Chloride 110 ml @ 220 mls/hr Q24H IVPB 12/16/17 16:00 12/20/17 15:59 Heparin Sodium (Porcine) (Heparin 5000 units/ml) 5,000 units EVERY 12 HOURS SUBQ 12/15/17 09:00 01/14/18 08:59 12/16/17 08:18 Lisinopril (Zestril) 5 mg BEDTIME ORAL 12/14/17 23:08 01/13/18 23:07 12/15/17 20:24 Morphine Sulfate (Morphine Sulfate) 4 mg Q4H PRN IVP For Severe Pain 12/15/17 14:29 12/22/17 14:28 12/15/17 22:04 Ondansetron HCl (Zofran) 4 mg EVERY 4 HOURS PRN IVP Nausea & Vomiting 12/14/17 22:45 01/13/18 22:44 Sodium Chloride 1,000 ml @ 100 mls/hr Q10H IV 12/14/17 22:45 01/13/18 22:44 12/16/17 13:41 Zolpidem Tartrate (Ambien) 5 mg HSPRN PRN ORAL Insomnia 12/15/17 00:45 12/22/17 00:44 12/16/17 01:14 Allergies: Coded Allergies: No Known Allergies (Unverified , 06/29/17) Objective Last Vital Signs Date Time Temp Pulse Resp B/P (MAP) Pulse Ox O2 Delivery O2 Flow Rate FiO2 12/16/17 12:00 98.7 80 20 104/65 98 98.7 12/15/17 12:00 Room Air Laboratory Tests Test 12/15/17 17:00 12/16/17 09:55 Urine Random Sodium 41 mmol/L (20-110) Urine Creatinine 19.7 MG/DL (30.0-125.0) L White Blood Count Pending Red Blood Count 3.32 M/UL (4.70-6.10) L Hemoglobin 11.1 G/DL (14.2-18.0) L Hematocrit 32.5 % (42.0-52.0) L Mean Corpuscular Volume 98 FL (80-99) Mean Corpuscular Hemoglobin 33.4 PG (27.0-31.0) H Mean Corpuscular Hemoglobin Concent 34.1 G/DL (32.0-36.0) Red Cell Distribution Width 10.8 % (11.6-14.8) L Platelet Count 284 K/UL (150-450) Mean Platelet Volume 5.3 FL (6.5-10.1) L Neutrophils (%) (Auto) 69.1 % (45.0-75.0) Lymphocytes (%) (Auto) 21.7 % (20.0-45.0) Monocytes (%) (Auto) 7.2 % (1.0-10.0) Eosinophils (%) (Auto) 1.1 % (0.0-3.0) Basophils (%) (Auto) 0.8 % (0.0-2.0) Lymphocytes Pending Sodium Level 138 MMOL/L (136-145) Potassium Level 3.9 MMOL/L (3.5-5.1) Chloride Level 106 MMOL/L (98-107) Carbon Dioxide Level 22 MMOL/L (21-32) Anion Gap 10 mmol/L (5-15) Blood Urea Nitrogen 26 mg/dL (7-18) H Creatinine 2.0 MG/DL (0.55-1.30) H Estimat Glomerular Filtration Rate 34.3 mL/min (>60) Glucose Level 114 MG/DL (74-106) H Calcium Level 9.0 MG/DL (8.5-10.1) Calcium (Send out) Pending Phosphorus Level 2.2 MG/DL (2.5-4.9) L Parathyroid Hormone (Intact) Pending Percent CD3 Cells Pending Absolute CD3 Count Pending Percent CD4 Cells Pending Absolute CD4 Count Pending T-Lymphocyte CD4/CD8 Ratio Pending Percent CD8 Cells Pending Absolute CD8 Count Pending Microbiology Date/Time Source Procedure Growth Status 12/14/17 20:55 Blood Blood Culture - Preliminary NO GROWTH AFTER 24 HOURS Resulted 12/14/17 20:40 Blood Blood Culture - Preliminary NO GROWTH AFTER 24 HOURS Resulted 12/14/17 20:30 Indwelling Cath Urine Culture - Final Escherichia Coli Complete Intake and Output 12/15/17 12/16/17 19:00 07:00 Intake Total 1210.0 ml 1000 ml Balance 1210.0 ml 1000 ml Intake Oral 240 ml IV Total 970.0 ml 1000 ml # Voids 4 2 Assessment/Plan Assessment/Plan No Known Allergies (Unverified , 06/29/17) Medication History Scheduled Duloxetine Hcl* (Cymbalta*), 60 MG ORAL QHS, (Reported) Efavirenz/Emtricitab/Tenofovir (Atripla), 1 TAB ORAL DAILY, (Reported) Lisinopril (Lisinopril*), 5 MG ORAL DAILY, (Reported) Prednisone* (Prednisone*), 60 MG ORAL DAILY Scheduled PRN Codeine/Promethazine Hcl* (Promethazine-Codeine Syrup*), 10 ML ORAL Q6H PRN for For Cough Zolpidem Tartrate* (Ambien*), 10 MG ORAL BEDTIME PRN for Insomnia, (Reported) Patient History History Provided By: Patient Healthcare decision maker Resuscitation status Advanced Directive on File ROS Review of Systems All Other Systems: negative except mentioned in HPI Physical Exam Physical Exam General Appearance: no apparent distress, alert HEENT: normocephalic, atraumatic Neck: non-tender, normal alignment, supple Respiratory/Chest: chest wall non-tender, lungs clear, normal breath sounds Cardiovascular/Chest: normal peripheral pulses, normal rate, regular rhythm Abdomen: normal bowel sounds, non tender, soft Genitourinary/Rectal: other - no flank pain Extremities: normal range of motion, non-tender Skin Exam: normal pigmentation, warm/dry Neurologic: hat measurer II-XII grossly normal, no motor/sensory deficits, alert, oriented x 3 Last 24 Hour Vital Signs Date Time Temp Pulse Resp B/P (MAP) Pulse Ox O2 Delivery O2 Flow Rate FiO2 12/15/17 13:44 99.0 12/15/17 12:45 99.0 12/15/17 12:00 97.0 73 20 116/64 98 Room Air 97.0 12/15/17 08:00 97.7 86 20 103/65 95 Room Air 97.7 12/15/17 04:00 99.0 98 20 116/67 98 99.0 12/15/17 00:16 114/72 12/15/17 00:00 97.9 78 20 114/72 97 97.9 12/14/17 21:55 97.3 74 22 116/66 100 Room Air 97.3 12/14/17 21:50 74 22 116/66 100 Room Air 12/14/17 21:00 69 16 118/74 100 Room Air 12/14/17 19:02 97.3 73 18 103/62 96 Room Air 97.3 12/14/17 18:52 97.3 73 18 103/62 96 Room Air 97.3 Intake and Output 12/14/17 12/15/17 19:00 07:00 Intake Total 510 ml Balance 510 ml Intake Oral 300 ml IV Total 210 ml # Voids 3 Laboratory Tests Test 12/14/17 19:51 12/14/17 20:30 12/14/17 20:40 12/15/17 06:50 White Blood Count 14.7 K/UL (4.8-10.8) H 12.9 K/UL (4.8-10.8) H Red Blood Count 3.58 M/UL (4.70-6.10) L 3.36 M/UL (4.70-6.10) L Hemoglobin 12.1 G/DL (14.2-18.0) L 11.4 G/DL (14.2-18.0) L Hematocrit 34.4 % (42.0-52.0) L 32.9 % (42.0-52.0) L Mean Corpuscular Volume 96 FL (80-99) 98 FL (80-99) Mean Corpuscular Hemoglobin 33.8 PG (27.0-31.0) H 33.9 PG (27.0-31.0) H Mean Corpuscular Hemoglobin Concent 35.3 G/DL (32.0-36.0) 34.6 G/DL (32.0-36.0) Red Cell Distribution Width 10.6 % (11.6-14.8) L 10.6 % (11.6-14.8) L Platelet Count 280 K/UL (150-450) 263 K/UL (150-450) Mean Platelet Volume 5.5 FL (6.5-10.1) L 5.5 FL (6.5-10.1) L Neutrophils (%) (Auto) 68.9 % (45.0-75.0) 71.0 % (45.0-75.0) Lymphocytes (%) (Auto) 18.5 % (20.0-45.0) L 18.3 % (20.0-45.0) L Monocytes (%) (Auto) 11.5 % (1.0-10.0) H 10.0 % (1.0-10.0) Eosinophils (%) (Auto) 0.5 % (0.0-3.0) 0.3 % (0.0-3.0) Basophils (%) (Auto) 0.6 % (0.0-2.0) 0.5 % (0.0-2.0) Sodium Level 134 MMOL/L (136-145) L 135 MMOL/L (136-145) L Potassium Level 4.0 MMOL/L (3.5-5.1) 4.4 MMOL/L (3.5-5.1) Chloride Level 103 MMOL/L (98-107) 103 MMOL/L (98-107) Carbon Dioxide Level 18 MMOL/L (21-32) L 20 MMOL/L (21-32) L Anion Gap 13 mmol/L (5-15) 12 mmol/L (5-15) Blood Urea Nitrogen 31 mg/dL (7-18) H 29 mg/dL (7-18) H Creatinine 2.4 MG/DL (0.55-1.30) H 2.3 MG/DL (0.55-1.30) H Estimat Glomerular Filtration Rate 27.8 mL/min (>60) 29.2 mL/min (>60) Glucose Level 118 MG/DL (74-106) H 126 MG/DL (74-106) H Calcium Level 9.2 MG/DL (8.5-10.1) 8.9 MG/DL (8.5-10.1) Total Bilirubin 0.4 MG/DL (0.2-1.0) Aspartate Amino Transf (AST/SGOT) 13 U/L (15-37) L Alanine Aminotransferase (ALT/SGPT) 18 U/L (12-78) Alkaline Phosphatase 94 U/L (46-116) Total Protein 8.6 G/DL (6.4-8.2) H Albumin 3.5 G/DL (3.4-5.0) Globulin 5.1 g/dL Albumin/Globulin Ratio 0.7 (1.0-2.7) L Urine Color Yellow Urine Appearance Slightly cloudy Urine pH 5 (4.5-8.0) Urine Specific Ethel 1.020 (1.005-1.035) Urine Protein 2+ (NEGATIVE) H Urine Glucose (UA) Negative (NEGATIVE) Urine Ketones Negative (NEGATIVE) Urine Occult Blood 3+ (NEGATIVE) H Urine Nitrite Positive (NEGATIVE) H Urine Bilirubin Negative (NEGATIVE) Urine Urobilinogen Normal MG/DL (0.0-1.0) Urine Leukocyte Esterase 3+ (NEGATIVE) H Urine RBC 2-4 /HPF (0 - 0) H Urine WBC 10-15 /HPF (0 - 0) H Urine Squamous Epithelial Cells None /LPF (NONE/OCC) Urine Amorphous Sediment Few /LPF (NONE) H Urine Bacteria Moderate /HPF (NONE) H Lactic Acid Level 0.60 mmol/L (0.66-2.22) L Microbiology Date/Time Source Procedure Growth Status 12/14/17 20:30 Indwelling Cath Urine Culture - Preliminary Gram Negative Bacillus 1 Resulted Height (Feet): 5 Height (Inches): 8.00 Weight (Pounds): 170 Medications Current Medications Medications (Trade) Dose Ordered Sig/Lorena Route PRN Reason Start Time Stop Time Status Last Admin Dose Admin Acetaminophen (Tylenol) 650 mg Q6H PRN ORAL Mild Pain/Temp > 100.5 12/14/17 22:45 01/13/18 22:44 Acetaminophen/ Hydrocodone Bitart ([place] 10/325) 1 tab Q4H PRN ORAL For Moderate Pain 12/15/17 14:28 12/22/17 14:27 Docusate Sodium (Colace) 100 mg TWICE A DAY ORAL 12/15/17 09:00 01/14/18 08:59 12/15/17 09:21 Ertapenem 1 gm/ Sodium Chloride 110 ml @ 220 mls/hr Q24H IVPB 12/15/17 16:00 12/16/17 15:59 Heparin Sodium (Porcine) (Heparin 5000 units/ml) 5,000 units EVERY 12 HOURS SUBQ 12/15/17 09:00 01/14/18 08:59 12/15/17 09:22 Lisinopril (Zestril) 5 mg BEDTIME ORAL 12/14/17 23:08 01/13/18 23:07 12/15/17 00:16 Morphine Sulfate (Morphine Sulfate) 4 mg Q4H PRN IVP For Severe Pain 12/15/17 14:29 12/22/17 14:28 Non-Formulary Medication (Non-Formulary Med) 1 ea BEDTIME ORAL 12/15/17 21:00 01/14/18 20:59 UNV Ondansetron HCl (Zofran) 4 mg EVERY 4 HOURS PRN IVP Nausea & Vomiting 12/14/17 22:45 01/13/18 22:44 Sodium Chloride 1,000 ml @ 100 mls/hr Q10H IV 12/14/17 22:45 01/13/18 22:44 12/15/17 09:21 Zolpidem Tartrate (Ambien) 5 mg HSPRN PRN ORAL Insomnia 12/15/17 00:45 12/22/17 00:44 12/15/17 01:07 Assessment/Plan Assessment/Plan Problem List: (1) ESBL (extended spectrum beta-lactamase) producing bacteria infection ICD Codes: A49.9 - Bacterial infection, unspecified; Z16.12 - Extended spectrum beta lactamase (ESBL) resistance SNOMED: 690403316, 061004109 (2) Renal insufficiency ICD Codes: N28.9 - Disorder of kidney and ureter, unspecified SNOMED: 261563686, 098545666 (3) Sepsis ICD Codes: A41.9 - Sepsis, unspecified organism SNOMED: 28223929 (4) HIV (human immunodeficiency virus infection) ICD Codes: B20 - Human immunodeficiency virus [HIV] disease SNOMED: 60382491 (5) UTI (urinary tract infection) ICD Codes: N39.0 - Urinary tract infection, site not specified SNOMED: 19771504, 519924410 Qualifiers: Qualified Codes: N39.0 - Urinary tract infection, site not specified Status: stable, progressing Assessment/Plan - ID and nephrology consulted - IV ertapenam 1g qd x 10 days - F/u repeat urine cx in hospital - F/u urine studies - F/u renal ultrasound - Attempted to contact patient's PCP, Dr Ramón Means [phone] for patient' s baseline Cr - Continue home HIV meds - Check lymphocyte panel/CD 4 count - IVF - pain control and supportive care DVT Prophylaxis: SCD, HSQ Code Status: Full Hospital Classification Declaration: Based on this initial evaluation, and depending on the patient's clinical course, I anticipate that this patient will require hospitalization for 2-3 days for ESBL UTI, sepsis, and close respiratory /hemodynamic monitoring. Disposition: Once the patient is stable to leave the hospital, I anticipate the patient will likely be discharged to the following environment: home with vs SNF Trinh Zhang M.D. December 16, 2017 14:21
--- NOTE | 2017-12-16 14:54 | Nephrology Progress Note ---
Assessment/Plan Problem List: (1) Acute on chronic renal failure Assessment: ARF slightly better (2) UTI (urinary tract infection) (3) ESBL (extended spectrum beta-lactamase) producing bacteria infection (4) HIV (human immunodeficiency virus infection) Plan IVF abxs check renal US follow BMP Subjective Subjective feels ok Objective Objective Last 24 Hour Vital Signs Date Time Temp Pulse Resp B/P (MAP) Pulse Ox O2 Delivery O2 Flow Rate FiO2 12/16/17 12:00 98.7 80 20 104/65 98 98.7 12/16/17 08:00 99.9 68 20 108/63 97 99.9 12/16/17 04:00 98.0 73 20 99/54 100 98.0 12/16/17 02:13 98.0 12/16/17 01:14 100.3 12/16/17 00:00 100.3 70 20 118/70 98 100.3 12/15/17 20:24 128/88 12/15/17 20:00 99.0 71 20 128/88 100 99.0 Intake and Output 12/15/17 12/16/17 19:00 07:00 Intake Total 1210.0 ml 1000 ml Balance 1210.0 ml 1000 ml Intake Oral 240 ml IV Total 970.0 ml 1000 ml # Voids 4 2 Laboratory Tests 12/15/17 17:00: Urine Random Sodium 41, Urine Creatinine 19.7L 12/16/17 09:55: White Blood Count [Pending], Red Blood Count 3.32L, Hemoglobin 11.1L, Hematocrit 32.5L, Mean Corpuscular Volume 98, Mean Corpuscular Hemoglobin 33.4H , Mean Corpuscular Hemoglobin Concent 34.1, Red Cell Distribution Width 10.8L, Platelet Count 284, Mean Platelet Volume 5.3L, Neutrophils (%) (Auto) 69.1, Lymphocytes (%) (Auto) 21.7, Monocytes (%) (Auto) 7.2, Eosinophils (%) (Auto) 1.1, Basophils (%) (Auto) 0.8, Lymphocytes [Pending], Sodium Level 138, Potassium Level 3.9, Chloride Level 106, Carbon Dioxide Level 22, Anion Gap 10, Blood Urea Nitrogen 26H, Creatinine 2.0H, Estimat Glomerular Filtration Rate 34.3, Glucose Level 114H, Calcium Level 9.0, Calcium (Send out) [Pending], Phosphorus Level 2.2L, Parathyroid Hormone (Intact) [Pending], Percent CD3 Cells [Pending], Absolute CD3 Count [Pending], Percent CD4 Cells [Pending], Absolute CD4 Count [Pending], T-Lymphocyte CD4/CD8 Ratio [Pending], Percent CD8 Cells [Pending], Absolute CD8 Count [Pending] Height (Feet): 5 Height (Inches): 8.00 Weight (Pounds): 170 Cardiovascular: normal rate Respiratory/Chest: lungs clear Extremities: other - no edema Sriram Tesfaye MD December 16, 2017 14:54
[2017-12-16 16:00] VITALS: BP 105/68
[2017-12-16] MEDS: Ertapenem 1 GM in NS 110 ML IVPB SCH (16:04)
[2017-12-16] MEDS: HYDROcodone/Acetamin 10/325 tab ORAL PRN (16:10)
--- NOTE | 2017-12-16 16:38 | Diagnostic Imaging Report ---
EXAM: US Retroperitoneal Limited, Renal CLINICAL HISTORY: Abnormal labs. History of HIV, hepatitis, and hypertension. TECHNIQUE: Real-time ultrasound of the retroperitoneum (limited) with image documentation. COMPARISON: No relevant prior studies available. FINDINGS: Right kidney: The right kidney measures 11.9 x 5.9 cm. No stones. No hydronephrosis. Normal echogenicity. Left kidney: Trace left-sided perinephric fluid. A 1.3 x 1.2 cm simple-appearing cyst is seen in the mid left kidney. The left kidney measures 11.1 x 4.9 cm. No stones. No hydronephrosis. Normal echogenicity. Bladder: Prevoid urinary bladder volume of 408 cc. Postvoid urinary bladder volume of 55 cc. Bilateral ureteral jets were identified with Doppler interrogation. IMPRESSION: 1. Trace left-sided perinephric fluid. 2. A 1.3 x 1.2 cm simple-appearing cyst in the mid left kidney.
--- NOTE | 2017-12-16 17:44 | Pulmonology Progress Note ---
Assessment/Plan Assessment/Plan Patient is a 62-year-old male with history of human immunodeficiency virus with his T-cell count over 1000 and viral load is undetectable. He is currently on Atripla. The patient is treated by his primary MD for urinary tract infection in the outpatient setting, however, it seemed that he had more resistant organism per the records is ESBL E. coli. The patient was told to come to the ER at [place] because he had chills. The patient came in with likely complicated urinary tract infection with possible sepsis and leukocytosis. Infectious Disease consultation was requested for antibiotic management because of history of ESBL E. coli urinary tract infection and gram-negative urinary tract infection and possible sepsis. The patient is currently on ertapenem, which I will continue at this time. Urine culture here at [place] is pending. Per the records, his E. coli was sensitive to cefepime, Zosyn, ertapenem, and imipenem. MAR was noted. Orders were noted. Notes and records were reviewed. No Pulmonary complaints PAST MEDICAL HISTORY: The patient's past medical history includes the history of the following. He has history of human immunodeficiency virus with a viral load undetectable and CD4 count over 1000. He has history of an outpatient setting with urinary tract infection, but he did not have any history of UTIs in the past. He does have acute kidney injury and elevated creatinine. He also is anemic. He does have history of hypertension also. He is also on Cymbalta and prednisone. I am not clear what is the reason for the Cymbalta. He does have hypertension, but no mention diabetes. MEDICATIONS: Upon reviewing the MAR, he is on the following medication. He is on ertapenem. He is on Sustiva. He is on tenofovir. He is on morphine. He is on hydrocodone. He is on heparin. He is on docusate. He is on emtricitabine or tenofovir. He is on zolpidem, lisinopril, sodium chloride, acetaminophen, and Zofran. Outside medications noted and reconciliated. ALLERGIES: No known drug allergies. SOCIAL HISTORY: Negative for smoking, alcohol, or drug abuse. FAMILY HISTORY: Noncontributory. Negative for exposure to tuberculosis or cancer. REVIEW OF SYSTEMS: CONSTITUTIONAL: The patient came in with chills. He currently does not have fevers. His chills are better with antibiotics. HEAD AND NECK: No mention of thrush, dysphagia, sinus tenderness, or neck stiffness. No change in vision. CARDIAC: No chest pain or palpitations. GASTROINTESTINAL: No nausea, vomiting, or diarrhea. GENITOURINARY: He has dysuria and frequency. No CVA tenderness. PULMONARY: No significant congestion, shortness of breath, hemoptysis, or secretions. SKIN: No rash. EXTREMITIES: No extremity pain. NEUROLOGIC: No seizures. No night sweats or weight loss. He came in with chills, but no fevers. The patient's chills have improved with antibiotics. PHYSICAL EXAMINATION: VITAL SIGNS: Temp is 97.0, pulse rate 73, respiratory rate 20, blood pressure 116/64, and saturation 98%. Heart rate has been as high as 98. Respiratory rate has been as high as 22. GENERAL: Alert and responsive, no distress. HEAD AND NECK: Oral exam, no thrush. Eye exam, no icterus. Neck is supple. No JVD. Normocephalic. No facial droop. No neck stiffness. LUNGS: Clear bilaterally. No rhonchi or rales. HEART: Regular. No gallop or murmur. ABDOMEN: Soft. Positive bowel sounds. Nontender. No organomegaly. SKIN: No rash. MUSCULOSKELETAL: No effusion. No septic arthritis. EXTREMITIES: Lower extremity exam, no cellulitis. PERIPHERAL VASCULAR: No cyanosis. NEUROLOGIC: Intact and nonfocal. LINES: Line sites without phlebitis. GENITOURINARY: He has no [place]. LABORATORY DATA: White count on admission 14.7 and white count now is 12.9 and hemoglobin 11.4. The patient's creatinine is 2.3. The patient's urinalysis had 3+ leukocyte esterase, 10 to 15 white blood cells, and moderate bacteria. CULTURES: Urine culture has gram-negative organisms . Per the records outside, urine culture had E. coli, ESBL. Sensitivities were noted. UA had positive nitrite. Chest x-ray is negative. No acute disease noted or reported. ASSESSMENT AND PLAN: 1. The patient has complicated urinary tract infection with gram-negative urinary tract infection currently on urine culture. The patient has history of extended spectrum beta-lactamases Escherichia coli urinary tract infection, which is probably again since he was on Cipro as an outpatient setting would be resistant to that. I will continue ertapenem to cover extended spectrum beta-lactamases Escherichia coli urinary tract infection and gram-negative urinary tract infection. The patient has possible sepsis with elevated white count and systemic inflammatory response syndrome criteria, heart rate over 90, respiratory rate over 20, and white count over 12. Continue antibiotics ertapenem. Check final urine culture. Check followup labs. Watch creatinine. Watch white cell count. 2. The patient has human immunodeficiency virus. At this point, currently he has an excellent T-cell count over 1000 and viral load undetectable. The patient does not have Atripla available at home at this time. I discussed with pharmacy here at [place]. We do not have Atripla tablets, but we will give the components of it including efavirenz, tenofovir, and emtricitabine. 3. Acute kidney injury with elevated creatinine. 4. Anemia. 5. The patient is on Cymbalta, unclear the exact reason, 6. Hypertension. Continue blood pressure treatment primary per primary. 7. No known allergies. 8. Social history is negative. 9. Family history is noncontributory. 10. MAR was noted. 11. Case was discussed with RN. 12. Case was discussed with pharmacy. 13. Continue treatment per primary consultants. 14. Notes and records were noted. Subjective ROS Limited/Unobtainable: No Constitutional: Reports: no symptoms HEENT: Repors: no symptoms Respiratory: Reports: no symptoms Cardiovascular: Reports: no symptoms Gastrointestinal/Abdominal: Reports: no symptoms Genitourinary: Reports: no symptoms Neurologic: Reports: no symptoms Psychiatric: Reports: no symptoms Skin: Reports: no symptoms Endocrine: Reports: no symptoms Hematologic: Reports: no symptoms Musculoskeletal: Reports: no symptoms Allergies: Coded Allergies: No Known Allergies (Unverified , 06/29/17) Objective Last 24 Hour Vital Signs Date Time Temp Pulse Resp B/P (MAP) Pulse Ox O2 Delivery O2 Flow Rate FiO2 12/16/17 17:09 98.7 12/16/17 16:10 98.7 12/16/17 16:00 99.5 60 20 105/68 96 Room Air 99.5 12/16/17 12:00 98.7 80 20 104/65 98 98.7 12/16/17 08:00 99.9 68 20 108/63 97 99.9 12/16/17 04:00 98.0 73 20 99/54 100 98.0 12/16/17 02:13 98.0 12/16/17 01:14 100.3 12/16/17 00:00 100.3 70 20 118/70 98 100.3 12/15/17 20:24 128/88 12/15/17 20:00 99.0 71 20 128/88 100 99.0 Intake and Output 12/15/17 12/16/17 19:00 07:00 Intake Total 1210.0 ml 1000 ml Balance 1210.0 ml 1000 ml Intake Oral 240 ml IV Total 970.0 ml 1000 ml # Voids 4 2 Microbiology Date/Time Source Procedure Growth Status 12/14/17 20:55 Blood Blood Culture - Preliminary NO GROWTH AFTER 24 HOURS Resulted 12/14/17 20:40 Blood Blood Culture - Preliminary NO GROWTH AFTER 24 HOURS Resulted 12/14/17 20:30 Indwelling Cath Urine Culture - Final Escherichia Coli Complete Laboratory Tests 12/16/17 09:55: White Blood Count [Pending], Red Blood Count 3.32L, Hemoglobin 11.1L, Hematocrit 32.5L, Mean Corpuscular Volume 98, Mean Corpuscular Hemoglobin 33.4H , Mean Corpuscular Hemoglobin Concent 34.1, Red Cell Distribution Width 10.8L, Platelet Count 284, Mean Platelet Volume 5.3L, Neutrophils (%) (Auto) 69.1, Lymphocytes (%) (Auto) 21.7, Monocytes (%) (Auto) 7.2, Eosinophils (%) (Auto) 1.1, Basophils (%) (Auto) 0.8, Lymphocytes [Pending], Sodium Level 138, Potassium Level 3.9, Chloride Level 106, Carbon Dioxide Level 22, Anion Gap 10, Blood Urea Nitrogen 26H, Creatinine 2.0H, Estimat Glomerular Filtration Rate 34.3, Glucose Level 114H, Calcium Level 9.0, Calcium (Send out) [Pending], Phosphorus Level 2.2L, Parathyroid Hormone (Intact) [Pending], Percent CD3 Cells [Pending], Absolute CD3 Count [Pending], Percent CD4 Cells [Pending], Absolute CD4 Count [Pending], T-Lymphocyte CD4/CD8 Ratio [Pending], Percent CD8 Cells [Pending], Absolute CD8 Count [Pending] Current Medications Medications (Trade) Dose Ordered Sig/Lorena Route PRN Reason Start Time Stop Time Status Last Admin Dose Admin Acetaminophen (Tylenol) 650 mg Q6H PRN ORAL Mild Pain/Temp > 100.5 12/14/17 22:45 01/13/18 22:44 12/16/17 01:14 Acetaminophen/ Hydrocodone Bitart ([place] 10/325) 1 tab Q4H PRN ORAL For Moderate Pain 12/15/17 14:28 12/22/17 14:27 12/16/17 16:10 Chlorthalidone (Chlorthalidone) 25 mg DAILY ORAL 12/17/17 09:00 01/16/18 08:59 Docusate Sodium (Colace) 100 mg TWICE A DAY ORAL 12/15/17 09:00 01/14/18 08:59 12/15/17 17:49 Duloxetine HCl (Cymbalta) 60 mg DAILY ORAL 12/17/17 09:00 01/16/18 08:59 Efavirenz (Sustiva) 600 mg Q24H ORAL 12/15/17 21:00 01/14/18 20:59 12/15/17 21:29 Emtricitabine/ Tenofovir (Truvada 200/ 300mg) 1 tab Q48H ORAL 12/15/17 21:00 01/14/18 20:59 12/15/17 21:29 Ertapenem 1 gm/ Sodium Chloride 110 ml @ 220 mls/hr Q24H IVPB 12/16/17 16:00 12/20/17 15:59 12/16/17 16:04 Heparin Sodium (Porcine) (Heparin 5000 units/ml) 5,000 units EVERY 12 HOURS SUBQ 12/15/17 09:00 01/14/18 08:59 12/16/17 08:18 Lisinopril (Zestril) 10 mg BEDTIME ORAL 12/16/17 21:00 01/13/18 23:07 Morphine Sulfate (Morphine Sulfate) 4 mg Q4H PRN IVP For Severe Pain 12/15/17 14:29 12/22/17 14:28 12/15/17 22:04 Ondansetron HCl (Zofran) 4 mg EVERY 4 HOURS PRN IVP Nausea & Vomiting 12/14/17 22:45 01/13/18 22:44 Patient Own Medication (Patient's Own Med) 1 ea DAILY ORAL 12/17/17 09:00 01/16/18 08:59 UNV Sodium Chloride 1,000 ml @ 100 mls/hr Q10H IV 12/14/17 22:45 01/13/18 22:44 12/16/17 13:41 Zolpidem Tartrate (Ambien) 10 mg HSPRN PRN ORAL Insomnia 12/16/17 14:30 12/22/17 00:44 Paulo Gibbons MD December 16, 2017 17:44
[2017-12-16 20:00] VITALS: BP 124/84
[2017-12-16] MEDS: Lisinopril 10mg tab ORAL SCH (20:42)
[2017-12-16] MEDS: Efavirenz 200mg cap ORAL SCH (20:42)
[2017-12-17] VITALS: BP 137/81
[2017-12-17] MEDS: Zolpidem 5mg tab ORAL PRN (00:25)
[2017-12-17] MEDS: Morphine Sulfate 4mg/ml Inj IVP PRN (00:26)
[2017-12-17 08:00] VITALS: BP 122/84
[2017-12-17 08:05] LABS: BASOPHILS % (AUTO) 1.2 % (0.0-2.0); HEMATOCRIT 30.7 % (42.0-52.0); HEMOGLOBIN 10.5 G/DL (14.2-18.0); LYMPHOCYTES % (AUTO) 34.2 % (20.0-45.0); MEAN CORPUSCULAR VOLUME 97 FL (80-99); MONOCYTES % (AUTO) 6.7 % (1.0-10.0); NEUTROPHILS % (AUTO) 54.9 % (45.0-75.0); PLATELET COUNT 259 K/UL (150-450); RED BLOOD COUNT 3.15 M/UL (4.70-6.10); RED CELL DISTRIBUTION WIDTH 10.9 % (11.6-14.8); WHITE BLOOD COUNT 8.1 K/UL (4.8-10.8)
[2017-12-17 08:31] LABS: ANION GAP 10 mmol/L (5-15); BLOOD UREA NITROGEN 23 mg/dL (7-18); CALCIUM 8.9 MG/DL (8.5-10.1); CARBON DIOXIDE 20 MMOL/L (21-32); CHLORIDE 106 MMOL/L (98-107); CREATININE 1.8 MG/DL (0.55-1.30); POTASSIUM 4.4 MMOL/L (3.5-5.1); SODIUM 136 MMOL/L (136-145)
[2017-12-17] MEDS: DULoxetine 30mg cap ORAL SCH (09:30)
[2017-12-17] MEDS: Docusate 100mg cap ORAL SCH ×2 (09:31→17:18)
[2017-12-17] MEDS: Heparin 5000 units/ml inj SUBQ SCH ×2 (09:33→20:41)
[2017-12-17 12:00] VITALS: BP 116/69
--- NOTE | 2017-12-17 13:13 | Infectious Diseases Prog Note ---
Assessment/Plan Assessment/Plan ASSESSMENT AND PLAN: 1. e.coli uti/pyelonephritis, sepsis, leukocytosis, fevers, us noted - clinically better, less urinary symptoms, fevers better, leukocytosis better - Ertapenem - day # 3, plan on 10 day treatment course 2. HIV - continue atripla combination, cd4/viral load stable 3. Acute kidney injury with elevated creatinine -cr improved 4. Anemia. 5. The patient is on Cymbalta, unclear the exact reason, 6. Hypertension. Continue blood pressure treatment primary per primary. 7. No known allergies. 8. Social history is negative. 9. Family history is noncontributory. 10. MAR was noted. 11. Case was discussed with RN. 12. Case was discussed with pharmacy. 13. Continue treatment per primary consultants. 14. Notes and records were noted. 15. Orders were entered. Subjective Constitutional: Denies: fever HEENT: Denies: congestion Respiratory: Denies: shortness of breath Cardiovascular: Denies: chest pain Gastrointestinal/Abdominal: Denies: nausea, vomiting, diarrhea Genitourinary: Reports: dysuria - less, frequency - less, other - no cva pain Neurologic: Denies: headache Psychiatric: Denies: depression Skin: Denies: rash Hematologic: Denies: bleeding Musculoskeletal: Denies: pain Allergies: Coded Allergies: No Known Allergies (Unverified , 06/29/17) Objective Vital Signs Last 24 Hour Vital Signs Date Time Temp Pulse Resp B/P (MAP) Pulse Ox O2 Delivery O2 Flow Rate FiO2 12/17/17 12:00 97.1 51 20 116/69 98 Room Air 97.1 12/17/17 08:00 97.4 59 21 122/84 95 Room Air 97.4 12/17/17 00:00 98.8 62 18 137/81 99 98.8 12/16/17 20:42 124/84 12/16/17 20:00 97.8 62 18 124/84 98 97.8 12/16/17 17:09 98.7 12/16/17 16:10 98.7 12/16/17 16:00 99.5 60 20 105/68 96 Room Air 99.5 Height (Feet): 5 Height (Inches): 8.00 Weight (Pounds): 170 General Appearance: no acute distress HEENT: normocephalic, atraumatic, anicteric, mucous membranes moist Respiratory/Chest: lungs clear, normal breath sounds, no respiratory distress, no accessory muscle use Cardiovascular: normal rate, regular rhythm, no gallop/murmur, no JVD Abdomen: normal bowel sounds, soft, non tender, no organomegaly, non distended Genitourinary: other - no cva pain, no griffith Extremities: no cyanosis Skin: no rash Neurologic/Psychiatric: operations trainer II-XII grossly normal, no motor/sensory deficits, alert, oriented x 3, responsive Lymphatic: no neck adenopathy Musculoskeletal: no effusion Objective Chest x-ray - negative pna (report noted) Renal ultrasound -- FINDINGS: Right kidney: The right kidney measures 11.9 x 5.9 cm. No stones. No hydronephrosis. Normal echogenicity. Left kidney: Trace left-sided perinephric fluid. A 1.3 x 1.2 cm simple-appearing cyst is seen in the mid left kidney. The left kidney measures 11.1 x 4.9 cm. No stones. No hydronephrosis. Normal echogenicity. Bladder: Prevoid urinary bladder volume of 408 cc. Postvoid urinary bladder volume of 55 cc. Bilateral ureteral jets were identified with Doppler interrogation. IMPRESSION: 1. Trace left-sided perinephric fluid. 2. A 1.3 x 1.2 cm simple-appearing cyst in the mid left kidney. Microbiology Date/Time Source Procedure Growth Status 12/14/17 20:55 Blood Blood Culture - Preliminary NO GROWTH AFTER 48 HOURS Resulted 12/14/17 20:40 Blood Blood Culture - Preliminary NO GROWTH AFTER 48 HOURS Resulted 12/14/17 20:30 Indwelling Cath Urine Culture - Final Escherichia Coli Complete Laboratory Tests Test 12/17/17 06:20 White Blood Count 8.1 K/UL (4.8-10.8) Red Blood Count 3.15 M/UL (4.70-6.10) L Hemoglobin 10.5 G/DL (14.2-18.0) L Hematocrit 30.7 % (42.0-52.0) L Mean Corpuscular Volume 97 FL (80-99) Mean Corpuscular Hemoglobin 33.4 PG (27.0-31.0) H Mean Corpuscular Hemoglobin Concent 34.3 G/DL (32.0-36.0) Red Cell Distribution Width 10.9 % (11.6-14.8) L Platelet Count 259 K/UL (150-450) Mean Platelet Volume 4.8 FL (6.5-10.1) L Neutrophils (%) (Auto) 54.9 % (45.0-75.0) Lymphocytes (%) (Auto) 34.2 % (20.0-45.0) Monocytes (%) (Auto) 6.7 % (1.0-10.0) Eosinophils (%) (Auto) 3.0 % (0.0-3.0) Basophils (%) (Auto) 1.2 % (0.0-2.0) Sodium Level 136 MMOL/L (136-145) Potassium Level 4.4 MMOL/L (3.5-5.1) Chloride Level 106 MMOL/L (98-107) Carbon Dioxide Level 20 MMOL/L (21-32) L Anion Gap 10 mmol/L (5-15) Blood Urea Nitrogen 23 mg/dL (7-18) H Creatinine 1.8 MG/DL (0.55-1.30) H Estimat Glomerular Filtration Rate 38.7 mL/min (>60) Glucose Level 98 MG/DL (74-106) Calcium Level 8.9 MG/DL (8.5-10.1) Current Medications Medications (Trade) Dose Ordered Sig/Lorena Route PRN Reason Start Time Stop Time Status Last Admin Dose Admin Acetaminophen (Tylenol) 650 mg Q6H PRN ORAL Mild Pain/Temp > 100.5 12/14/17 22:45 01/13/18 22:44 12/16/17 01:14 Acetaminophen/ Hydrocodone Bitart ([place] 10/325) 1 tab Q4H PRN ORAL For Moderate Pain 12/15/17 14:28 12/22/17 14:27 12/16/17 16:10 Chlorthalidone (Chlorthalidone) 25 mg DAILY ORAL 12/17/17 09:00 01/16/18 08:59 Docusate Sodium (Colace) 100 mg TWICE A DAY ORAL 12/15/17 09:00 01/14/18 08:59 12/17/17 09:31 Duloxetine HCl (Cymbalta) 60 mg DAILY ORAL 12/17/17 09:00 01/16/18 08:59 12/17/17 09:30 Efavirenz (Sustiva) 600 mg Q24H ORAL 12/15/17 21:00 01/14/18 20:59 12/16/17 20:42 Emtricitabine/ Tenofovir (Truvada 200/ 300mg) 1 tab Q48H ORAL 12/15/17 21:00 01/14/18 20:59 12/15/17 21:29 Ertapenem 1 gm/ Sodium Chloride 110 ml @ 220 mls/hr Q24H IVPB 12/16/17 16:00 12/20/17 15:59 12/16/17 16:04 Heparin Sodium (Porcine) (Heparin 5000 units/ml) 5,000 units EVERY 12 HOURS SUBQ 12/15/17 09:00 01/14/18 08:59 12/17/17 09:33 Lisinopril (Zestril) 10 mg BEDTIME ORAL 12/16/17 21:00 01/13/18 23:07 12/16/17 20:42 Morphine Sulfate (Morphine Sulfate) 4 mg Q4H PRN IVP For Severe Pain 12/15/17 14:29 12/22/17 14:28 12/17/17 00:26 Ondansetron HCl (Zofran) 4 mg EVERY 4 HOURS PRN IVP Nausea & Vomiting 12/14/17 22:45 01/13/18 22:44 Patient Own Medication (Patient's Own Med) 1 ea DAILY ORAL 12/17/17 09:00 01/16/18 08:59 UNV Sodium Chloride 1,000 ml @ 100 mls/hr Q10H IV 12/14/17 22:45 01/13/18 22:44 12/17/17 11:15 Zolpidem Tartrate (Ambien) 10 mg HSPRN PRN ORAL Insomnia 12/16/17 14:30 12/22/17 00:44 12/17/17 00:25 Ramu Hodges MD December 17, 2017 13:13
--- NOTE | 2017-12-17 14:31 | Nephrology Progress Note ---
Assessment/Plan Problem List: (1) Acute on chronic renal failure Assessment: ARF slightly better (2) UTI (urinary tract infection) (3) ESBL (extended spectrum beta-lactamase) producing bacteria infection (4) HIV (human immunodeficiency virus infection) Assessment Renal US unremarkable Plan IVF abxs follow BMP Subjective Subjective feels ok Objective Objective Last 24 Hour Vital Signs Date Time Temp Pulse Resp B/P (MAP) Pulse Ox O2 Delivery O2 Flow Rate FiO2 12/17/17 12:00 97.1 51 20 116/69 98 Room Air 97.1 12/17/17 08:00 97.4 59 21 122/84 95 Room Air 97.4 12/17/17 00:00 98.8 62 18 137/81 99 98.8 12/16/17 20:42 124/84 12/16/17 20:00 97.8 62 18 124/84 98 97.8 12/16/17 17:09 98.7 12/16/17 16:10 98.7 12/16/17 16:00 99.5 60 20 105/68 96 Room Air 99.5 Intake and Output 12/16/17 12/17/17 19:00 07:00 Intake Total 1920 ml 1750 ml Balance 1920 ml 1750 ml Intake Oral 660 ml 650 ml IV Total 1260 ml 1100 ml # Voids 5 Laboratory Tests 12/17/17 06:20: White Blood Count 8.1, Red Blood Count 3.15L, Hemoglobin 10.5L, Hematocrit 30.7L , Mean Corpuscular Volume 97, Mean Corpuscular Hemoglobin 33.4H, Mean Corpuscular Hemoglobin Concent 34.3, Red Cell Distribution Width 10.9L, Platelet Count 259, Mean Platelet Volume 4.8L, Neutrophils (%) (Auto) 54.9, Lymphocytes (%) (Auto) 34.2, Monocytes (%) (Auto) 6.7, Eosinophils (%) (Auto) 3.0, Basophils (%) (Auto) 1.2, Sodium Level 136, Potassium Level 4.4, Chloride Level 106, Carbon Dioxide Level 20L, Anion Gap 10, Blood Urea Nitrogen 23H, Creatinine 1.8H, Estimat Glomerular Filtration Rate 38.7, Glucose Level 98, Calcium Level 8.9 Height (Feet): 5 Height (Inches): 8.00 Weight (Pounds): 170 Cardiovascular: normal rate Respiratory/Chest: lungs clear Extremities: other - no edema Sriram Tesfaye MD December 17, 2017 14:31
[2017-12-17] MEDS: Ertapenem 1 GM in NS 110 ML IVPB SCH (15:08)
[2017-12-17 16:06] VITALS: BP 117/78
--- NOTE | 2017-12-17 18:20 | Internal Med Progress Note ---
Subjective Physician Name Trinh Zhang Attending Physician Kishan Ghosh M.D. Current Medications Medications (Trade) Dose Ordered Sig/Lorena Route PRN Reason Start Time Stop Time Status Last Admin Dose Admin Acetaminophen (Tylenol) 650 mg Q6H PRN ORAL Mild Pain/Temp > 100.5 12/14/17 22:45 01/13/18 22:44 12/16/17 01:14 Acetaminophen/ Hydrocodone Bitart ([place] 10/325) 1 tab Q4H PRN ORAL For Moderate Pain 12/15/17 14:28 12/22/17 14:27 12/16/17 16:10 Chlorthalidone (Chlorthalidone) 25 mg DAILY ORAL 12/17/17 09:00 01/16/18 08:59 Docusate Sodium (Colace) 100 mg TWICE A DAY ORAL 12/15/17 09:00 01/14/18 08:59 12/17/17 17:18 Duloxetine HCl (Cymbalta) 60 mg DAILY ORAL 12/17/17 09:00 01/16/18 08:59 12/17/17 09:30 Efavirenz (Sustiva) 600 mg Q24H ORAL 12/15/17 21:00 01/14/18 20:59 12/16/17 20:42 Emtricitabine/ Tenofovir (Truvada 200/ 300mg) 1 tab Q48H ORAL 12/15/17 21:00 01/14/18 20:59 12/15/17 21:29 Ertapenem 1 gm/ Sodium Chloride 110 ml @ 220 mls/hr Q24H IVPB 12/16/17 16:00 12/20/17 15:59 12/17/17 15:08 Heparin Sodium (Porcine) (Heparin 5000 units/ml) 5,000 units EVERY 12 HOURS SUBQ 12/15/17 09:00 01/14/18 08:59 12/17/17 09:33 Lisinopril (Zestril) 10 mg BEDTIME ORAL 12/16/17 21:00 01/13/18 23:07 12/16/17 20:42 Morphine Sulfate (Morphine Sulfate) 4 mg Q4H PRN IVP For Severe Pain 12/15/17 14:29 12/22/17 14:28 12/17/17 00:26 Ondansetron HCl (Zofran) 4 mg EVERY 4 HOURS PRN IVP Nausea & Vomiting 12/14/17 22:45 01/13/18 22:44 Patient Own Medication (Patient's Own Med) 1 ea DAILY ORAL 12/17/17 09:00 01/16/18 08:59 UNV Sodium Chloride 1,000 ml @ 100 mls/hr Q10H IV 12/14/17 22:45 01/13/18 22:44 12/17/17 11:15 Zolpidem Tartrate (Ambien) 10 mg HSPRN PRN ORAL Insomnia 12/16/17 14:30 12/22/17 00:44 12/17/17 00:25 Allergies: Coded Allergies: No Known Allergies (Unverified , 06/29/17) Objective Last Vital Signs Date Time Temp Pulse Resp B/P (MAP) Pulse Ox O2 Delivery O2 Flow Rate FiO2 12/17/17 16:06 98.3 55 23 117/78 99 Room Air 98.3 Laboratory Tests Test 12/17/17 06:20 White Blood Count 8.1 K/UL (4.8-10.8) Red Blood Count 3.15 M/UL (4.70-6.10) L Hemoglobin 10.5 G/DL (14.2-18.0) L Hematocrit 30.7 % (42.0-52.0) L Mean Corpuscular Volume 97 FL (80-99) Mean Corpuscular Hemoglobin 33.4 PG (27.0-31.0) H Mean Corpuscular Hemoglobin Concent 34.3 G/DL (32.0-36.0) Red Cell Distribution Width 10.9 % (11.6-14.8) L Platelet Count 259 K/UL (150-450) Mean Platelet Volume 4.8 FL (6.5-10.1) L Neutrophils (%) (Auto) 54.9 % (45.0-75.0) Lymphocytes (%) (Auto) 34.2 % (20.0-45.0) Monocytes (%) (Auto) 6.7 % (1.0-10.0) Eosinophils (%) (Auto) 3.0 % (0.0-3.0) Basophils (%) (Auto) 1.2 % (0.0-2.0) Sodium Level 136 MMOL/L (136-145) Potassium Level 4.4 MMOL/L (3.5-5.1) Chloride Level 106 MMOL/L (98-107) Carbon Dioxide Level 20 MMOL/L (21-32) L Anion Gap 10 mmol/L (5-15) Blood Urea Nitrogen 23 mg/dL (7-18) H Creatinine 1.8 MG/DL (0.55-1.30) H Estimat Glomerular Filtration Rate 38.7 mL/min (>60) Glucose Level 98 MG/DL (74-106) Calcium Level 8.9 MG/DL (8.5-10.1) Microbiology Date/Time Source Procedure Growth Status 12/14/17 20:55 Blood Blood Culture - Preliminary NO GROWTH AFTER 48 HOURS Resulted 12/14/17 20:40 Blood Blood Culture - Preliminary NO GROWTH AFTER 48 HOURS Resulted 12/14/17 20:30 Indwelling Cath Urine Culture - Final Escherichia Coli Complete Intake and Output 12/16/17 12/17/17 19:00 07:00 Intake Total 1920 ml 1750 ml Balance 1920 ml 1750 ml Intake Oral 660 ml 650 ml IV Total 1260 ml 1100 ml # Voids 5 Assessment/Plan Assessment/Plan No Known Allergies (Unverified , 06/29/17) Medication History Scheduled Duloxetine Hcl* (Cymbalta*), 60 MG ORAL QHS, (Reported) Efavirenz/Emtricitab/Tenofovir (Atripla), 1 TAB ORAL DAILY, (Reported) Lisinopril (Lisinopril*), 5 MG ORAL DAILY, (Reported) Prednisone* (Prednisone*), 60 MG ORAL DAILY Scheduled PRN Codeine/Promethazine Hcl* (Promethazine-Codeine Syrup*), 10 ML ORAL Q6H PRN for For Cough Zolpidem Tartrate* (Ambien*), 10 MG ORAL BEDTIME PRN for Insomnia, (Reported) Patient History History Provided By: Patient Healthcare decision maker Resuscitation status Advanced Directive on File ROS Review of Systems All Other Systems: negative except mentioned in HPI Physical Exam Physical Exam General Appearance: no apparent distress, alert HEENT: normocephalic, atraumatic Neck: non-tender, normal alignment, supple Respiratory/Chest: chest wall non-tender, lungs clear, normal breath sounds Cardiovascular/Chest: normal peripheral pulses, normal rate, regular rhythm Abdomen: normal bowel sounds, non tender, soft Genitourinary/Rectal: other - no flank pain Extremities: normal range of motion, non-tender Skin Exam: normal pigmentation, warm/dry Neurologic: food porter II-XII grossly normal, no motor/sensory deficits, alert, oriented x 3 Last 24 Hour Vital Signs Date Time Temp Pulse Resp B/P (MAP) Pulse Ox O2 Delivery O2 Flow Rate FiO2 12/15/17 13:44 99.0 12/15/17 12:45 99.0 12/15/17 12:00 97.0 73 20 116/64 98 Room Air 97.0 12/15/17 08:00 97.7 86 20 103/65 95 Room Air 97.7 12/15/17 04:00 99.0 98 20 116/67 98 99.0 12/15/17 00:16 114/72 12/15/17 00:00 97.9 78 20 114/72 97 97.9 12/14/17 21:55 97.3 74 22 116/66 100 Room Air 97.3 12/14/17 21:50 74 22 116/66 100 Room Air 12/14/17 21:00 69 16 118/74 100 Room Air 12/14/17 19:02 97.3 73 18 103/62 96 Room Air 97.3 12/14/17 18:52 97.3 73 18 103/62 96 Room Air 97.3 Intake and Output 12/14/17 12/15/17 19:00 07:00 Intake Total 510 ml Balance 510 ml Intake Oral 300 ml IV Total 210 ml # Voids 3 Laboratory Tests Test 12/14/17 19:51 12/14/17 20:30 12/14/17 20:40 12/15/17 06:50 White Blood Count 14.7 K/UL (4.8-10.8) H 12.9 K/UL (4.8-10.8) H Red Blood Count 3.58 M/UL (4.70-6.10) L 3.36 M/UL (4.70-6.10) L Hemoglobin 12.1 G/DL (14.2-18.0) L 11.4 G/DL (14.2-18.0) L Hematocrit 34.4 % (42.0-52.0) L 32.9 % (42.0-52.0) L Mean Corpuscular Volume 96 FL (80-99) 98 FL (80-99) Mean Corpuscular Hemoglobin 33.8 PG (27.0-31.0) H 33.9 PG (27.0-31.0) H Mean Corpuscular Hemoglobin Concent 35.3 G/DL (32.0-36.0) 34.6 G/DL (32.0-36.0) Red Cell Distribution Width 10.6 % (11.6-14.8) L 10.6 % (11.6-14.8) L Platelet Count 280 K/UL (150-450) 263 K/UL (150-450) Mean Platelet Volume 5.5 FL (6.5-10.1) L 5.5 FL (6.5-10.1) L Neutrophils (%) (Auto) 68.9 % (45.0-75.0) 71.0 % (45.0-75.0) Lymphocytes (%) (Auto) 18.5 % (20.0-45.0) L 18.3 % (20.0-45.0) L Monocytes (%) (Auto) 11.5 % (1.0-10.0) H 10.0 % (1.0-10.0) Eosinophils (%) (Auto) 0.5 % (0.0-3.0) 0.3 % (0.0-3.0) Basophils (%) (Auto) 0.6 % (0.0-2.0) 0.5 % (0.0-2.0) Sodium Level 134 MMOL/L (136-145) L 135 MMOL/L (136-145) L Potassium Level 4.0 MMOL/L (3.5-5.1) 4.4 MMOL/L (3.5-5.1) Chloride Level 103 MMOL/L (98-107) 103 MMOL/L (98-107) Carbon Dioxide Level 18 MMOL/L (21-32) L 20 MMOL/L (21-32) L Anion Gap 13 mmol/L (5-15) 12 mmol/L (5-15) Blood Urea Nitrogen 31 mg/dL (7-18) H 29 mg/dL (7-18) H Creatinine 2.4 MG/DL (0.55-1.30) H 2.3 MG/DL (0.55-1.30) H Estimat Glomerular Filtration Rate 27.8 mL/min (>60) 29.2 mL/min (>60) Glucose Level 118 MG/DL (74-106) H 126 MG/DL (74-106) H Calcium Level 9.2 MG/DL (8.5-10.1) 8.9 MG/DL (8.5-10.1) Total Bilirubin 0.4 MG/DL (0.2-1.0) Aspartate Amino Transf (AST/SGOT) 13 U/L (15-37) L Alanine Aminotransferase (ALT/SGPT) 18 U/L (12-78) Alkaline Phosphatase 94 U/L (46-116) Total Protein 8.6 G/DL (6.4-8.2) H Albumin 3.5 G/DL (3.4-5.0) Globulin 5.1 g/dL Albumin/Globulin Ratio 0.7 (1.0-2.7) L Urine Color Yellow Urine Appearance Slightly cloudy Urine pH 5 (4.5-8.0) Urine Specific [place] 1.020 (1.005-1.035) Urine Protein 2+ (NEGATIVE) H Urine Glucose (UA) Negative (NEGATIVE) Urine Ketones Negative (NEGATIVE) Urine Occult Blood 3+ (NEGATIVE) H Urine Nitrite Positive (NEGATIVE) H Urine Bilirubin Negative (NEGATIVE) Urine Urobilinogen Normal MG/DL (0.0-1.0) Urine Leukocyte Esterase 3+ (NEGATIVE) H Urine RBC 2-4 /HPF (0 - 0) H Urine WBC 10-15 /HPF (0 - 0) H Urine Squamous Epithelial Cells None /LPF (NONE/OCC) Urine Amorphous Sediment Few /LPF (NONE) H Urine Bacteria Moderate /HPF (NONE) H Lactic Acid Level 0.60 mmol/L (0.66-2.22) L Microbiology Date/Time Source Procedure Growth Status 12/14/17 20:30 Indwelling Cath Urine Culture - Preliminary Gram Negative Bacillus 1 Resulted Height (Feet): 5 Height (Inches): 8.00 Weight (Pounds): 170 Medications Current Medications Medications (Trade) Dose Ordered Sig/Lorena Route PRN Reason Start Time Stop Time Status Last Admin Dose Admin Acetaminophen (Tylenol) 650 mg Q6H PRN ORAL Mild Pain/Temp > 100.5 12/14/17 22:45 01/13/18 22:44 Acetaminophen/ Hydrocodone Bitart ([place] 10/325) 1 tab Q4H PRN ORAL For Moderate Pain 12/15/17 14:28 12/22/17 14:27 Docusate Sodium (Colace) 100 mg TWICE A DAY ORAL 12/15/17 09:00 01/14/18 08:59 12/15/17 09:21 Ertapenem 1 gm/ Sodium Chloride 110 ml @ 220 mls/hr Q24H IVPB 12/15/17 16:00 12/16/17 15:59 Heparin Sodium (Porcine) (Heparin 5000 units/ml) 5,000 units EVERY 12 HOURS SUBQ 12/15/17 09:00 01/14/18 08:59 12/15/17 09:22 Lisinopril (Zestril) 5 mg BEDTIME ORAL 12/14/17 23:08 01/13/18 23:07 12/15/17 00:16 Morphine Sulfate (Morphine Sulfate) 4 mg Q4H PRN IVP For Severe Pain 12/15/17 14:29 12/22/17 14:28 Non-Formulary Medication (Non-Formulary Med) 1 ea BEDTIME ORAL 12/15/17 21:00 01/14/18 20:59 UNV Ondansetron HCl (Zofran) 4 mg EVERY 4 HOURS PRN IVP Nausea & Vomiting 12/14/17 22:45 01/13/18 22:44 Sodium Chloride 1,000 ml @ 100 mls/hr Q10H IV 12/14/17 22:45 01/13/18 22:44 12/15/17 09:21 Zolpidem Tartrate (Ambien) 5 mg HSPRN PRN ORAL Insomnia 12/15/17 00:45 12/22/17 00:44 12/15/17 01:07 Assessment/Plan Assessment/Plan Problem List: (1) ESBL (extended spectrum beta-lactamase) producing bacteria infection ICD Codes: A49.9 - Bacterial infection, unspecified; Z16.12 - Extended spectrum beta lactamase (ESBL) resistance SNOMED: 359138378, 152008687 (2) Renal insufficiency ICD Codes: N28.9 - Disorder of kidney and ureter, unspecified SNOMED: 144456265, 691196538 (3) Sepsis ICD Codes: A41.9 - Sepsis, unspecified organism SNOMED: 58346868 (4) HIV (human immunodeficiency virus infection) ICD Codes: B20 - Human immunodeficiency virus [HIV] disease SNOMED: 58191225 (5) UTI (urinary tract infection) ICD Codes: N39.0 - Urinary tract infection, site not specified SNOMED: 86967668, 001087003 Qualifiers: Qualified Codes: N39.0 - Urinary tract infection, site not specified Status: stable, progressing Assessment/Plan - ID and nephrology consulted - IV ertapenam 1g qd x 10 days - F/u repeat urine cx in hospital - renal ultrasound unremarkable - Attempted to contact patient's PCP, Dr Ramón Means [phone] for patient' s baseline Cr - Continue home HIV meds - Check lymphocyte panel/CD 4 count - IVF - pain control and supportive care DVT Prophylaxis: SCD, HSQ Code Status: Full Hospital Classification Declaration: Based on this initial evaluation, and depending on the patient's clinical course, I anticipate that this patient will require hospitalization for 2-3 days for ESBL UTI, sepsis, and close respiratory /hemodynamic monitoring. Disposition: Once the patient is stable to leave the hospital, I anticipate the patient will likely be discharged to the following environment: home with vs SNF Trinh Zhang M.D. December 17, 2017 18:20
[2017-12-17 20:00] VITALS: BP 138/84
[2017-12-17] MEDS: Efavirenz 200mg cap ORAL SCH (20:33)
[2017-12-17] MEDS: Lisinopril 10mg tab ORAL SCH (20:34)
[2017-12-18] VITALS: BP 130/82
[2017-12-18] MEDS: Zolpidem 5mg tab ORAL PRN (01:53)
[2017-12-18] MEDS: Morphine Sulfate 4mg/ml Inj IVP PRN (01:54)
[2017-12-18 04:00] VITALS: BP 115/71
[2017-12-18 07:31] LABS: BASOPHILS % (AUTO) 1.2 % (0.0-2.0); EOSINOPHILS % (AUTO) 3.3 % (0.0-3.0); HEMATOCRIT 32.4 % (42.0-52.0); LYMPHOCYTES % (AUTO) 45.7 % (20.0-45.0); MEAN CORPUSCULAR VOLUME 98 FL (80-99); MONOCYTES % (AUTO) 7.9 % (1.0-10.0); NEUTROPHILS % (AUTO) 41.9 % (45.0-75.0); PLATELET COUNT 285 K/UL (150-450); RED CELL DISTRIBUTION WIDTH 10.9 % (11.6-14.8); WHITE BLOOD COUNT 7.1 K/UL (4.8-10.8)
[2017-12-18 07:44] LABS: ANION GAP 8 mmol/L (5-15); BLOOD UREA NITROGEN 25 mg/dL (7-18); CALCIUM 9.1 MG/DL (8.5-10.1); CARBON DIOXIDE 23 MMOL/L (21-32); CHLORIDE 107 MMOL/L (98-107); CREATININE 1.8 MG/DL (0.55-1.30); POTASSIUM 4.9 MMOL/L (3.5-5.1); SODIUM 138 MMOL/L (136-145)
[2017-12-18 08:00] VITALS: BP 115/66
[2017-12-18] MEDS: Docusate 100mg cap ORAL SCH ×2 (09:00→18:00)
[2017-12-18] MEDS: DULoxetine 30mg cap ORAL SCH (09:16)
[2017-12-18] MEDS: Heparin 5000 units/ml inj SUBQ SCH ×2 (09:18→21:23)
--- NOTE | 2017-12-18 10:37 | Pulmonology Progress Note ---
Assessment/Plan Assessment/Plan Patient seen on 12/17/2017 Patient is a 62-year-old male with history of human immunodeficiency virus with his T-cell count over 1000 and viral load is undetectable. He is currently on Atripla. The patient is treated by his primary MD for urinary tract infection in the outpatient setting, however, it seemed that he had more resistant organism per the records is ESBL E. coli. The patient was told to come to the ER at [place] because he had chills. The patient came in with likely complicated urinary tract infection with possible sepsis and leukocytosis. Infectious Disease consultation was requested for antibiotic management because of history of ESBL E. coli urinary tract infection and gram-negative urinary tract infection and possible sepsis. The patient is currently on ertapenem, which I will continue at this time. Urine culture here at [place] is pending. Per the records, his E. coli was sensitive to cefepime, Zosyn, ertapenem, and imipenem. MAR was noted. Orders were noted. Notes and records were reviewed. No Pulmonary complaints PAST MEDICAL HISTORY: The patient's past medical history includes the history of the following. He has history of human immunodeficiency virus with a viral load undetectable and CD4 count over 1000. He has history of an outpatient setting with urinary tract infection, but he did not have any history of UTIs in the past. He does have acute kidney injury and elevated creatinine. He also is anemic. He does have history of hypertension also. He is also on Cymbalta and prednisone. I am not clear what is the reason for the Cymbalta. He does have hypertension, but no mention diabetes. MEDICATIONS: Upon reviewing the MAR, he is on the following medication. He is on ertapenem. He is on Sustiva. He is on tenofovir. He is on morphine. He is on hydrocodone. He is on heparin. He is on docusate. He is on emtricitabine or tenofovir. He is on zolpidem, lisinopril, sodium chloride, acetaminophen, and Zofran. Outside medications noted and reconciliated. ALLERGIES: No known drug allergies. SOCIAL HISTORY: Negative for smoking, alcohol, or drug abuse. FAMILY HISTORY: Noncontributory. Negative for exposure to tuberculosis or cancer. REVIEW OF SYSTEMS: CONSTITUTIONAL: The patient came in with chills. He currently does not have fevers. His chills are better with antibiotics. HEAD AND NECK: No mention of thrush, dysphagia, sinus tenderness, or neck stiffness. No change in vision. CARDIAC: No chest pain or palpitations. GASTROINTESTINAL: No nausea, vomiting, or diarrhea. GENITOURINARY: He has dysuria and frequency. No CVA tenderness. PULMONARY: No significant congestion, shortness of breath, hemoptysis, or secretions. SKIN: No rash. EXTREMITIES: No extremity pain. NEUROLOGIC: No seizures. No night sweats or weight loss. He came in with chills, but no fevers. The patient's chills have improved with antibiotics. PHYSICAL EXAMINATION: VITAL SIGNS: Temp is 97.0, pulse rate 73, respiratory rate 20, blood pressure 116/64, and saturation 98%. Heart rate has been as high as 98. Respiratory rate has been as high as 22. GENERAL: Alert and responsive, no distress. HEAD AND NECK: Oral exam, no thrush. Eye exam, no icterus. Neck is supple. No JVD. Normocephalic. No facial droop. No neck stiffness. LUNGS: Clear bilaterally. No rhonchi or rales. HEART: Regular. No gallop or murmur. ABDOMEN: Soft. Positive bowel sounds. Nontender. No organomegaly. SKIN: No rash. MUSCULOSKELETAL: No effusion. No septic arthritis. EXTREMITIES: Lower extremity exam, no cellulitis. PERIPHERAL VASCULAR: No cyanosis. NEUROLOGIC: Intact and nonfocal. LINES: Line sites without phlebitis. GENITOURINARY: He has no [place]. LABORATORY DATA: White count on admission 14.7 and white count now is 12.9 and hemoglobin 11.4. The patient's creatinine is 2.3. The patient's urinalysis had 3+ leukocyte esterase, 10 to 15 white blood cells, and moderate bacteria. CULTURES: Urine culture has gram-negative organisms . Per the records outside, urine culture had E. coli, ESBL. Sensitivities were noted. UA had positive nitrite. Chest x-ray is negative. No acute disease noted or reported. ASSESSMENT AND PLAN: 1. The patient has complicated urinary tract infection with gram-negative urinary tract infection currently on urine culture. The patient has history of extended spectrum beta-lactamases Escherichia coli urinary tract infection, which is probably again since he was on Cipro as an outpatient setting would be resistant to that. I will continue ertapenem to cover extended spectrum beta-lactamases Escherichia coli urinary tract infection and gram-negative urinary tract infection. The patient has possible sepsis with elevated white count and systemic inflammatory response syndrome criteria, heart rate over 90, respiratory rate over 20, and white count over 12. Continue antibiotics ertapenem. Check final urine culture. Check followup labs. Watch creatinine. Watch white cell count. 2. The patient has human immunodeficiency virus. At this point, currently he has an excellent T-cell count over 1000 and viral load undetectable. The patient does not have Atripla available at home at this time. I discussed with pharmacy here at [place]. We do not have Atripla tablets, but we will give the components of it including efavirenz, tenofovir, and emtricitabine. 3. Acute kidney injury with elevated creatinine. 4. Anemia. 5. The patient is on Cymbalta, unclear the exact reason, 6. Hypertension. Continue blood pressure treatment primary per primary. 7. No known allergies. 8. Social history is negative. 9. Family history is noncontributory. 10. MAR was noted. 11. Case was discussed with RN. 12. Case was discussed with pharmacy. 13. Continue treatment per primary consultants. 14. Notes and records were noted. Patient seen on 12/17/2017 Subjective Allergies: Coded Allergies: No Known Allergies (Unverified , 06/29/17) Objective Last 24 Hour Vital Signs Date Time Temp Pulse Resp B/P (MAP) Pulse Ox O2 Delivery O2 Flow Rate FiO2 12/18/17 04:00 98.4 52 20 115/71 97 98.4 12/18/17 00:00 97.9 59 20 130/82 97 97.9 12/17/17 20:34 135/84 12/17/17 20:00 98.4 59 20 138/84 100 98.4 12/17/17 16:06 98.3 55 23 117/78 99 Room Air 98.3 12/17/17 12:00 97.1 51 20 116/69 98 Room Air 97.1 Intake and Output 12/17/17 12/18/17 19:00 07:00 Intake Total 2040 ml 900 ml Balance 2040 ml 900 ml Intake Oral 780 ml IV Total 1260 ml 900 ml # Voids 3 Laboratory Tests 12/18/17 06:30: White Blood Count 7.1, Red Blood Count 3.30L, Hemoglobin 11.0L, Hematocrit 32.4L , Mean Corpuscular Volume 98, Mean Corpuscular Hemoglobin 33.2H, Mean Corpuscular Hemoglobin Concent 33.8, Red Cell Distribution Width 10.9L, Platelet Count 285, Mean Platelet Volume 5.0L, Neutrophils (%) (Auto) 41.9L, Lymphocytes (%) (Auto) 45.7H, Monocytes (%) (Auto) 7.9, Eosinophils (%) (Auto) 3.3H, Basophils (%) (Auto) 1.2, Sodium Level 138, Potassium Level 4.9, Chloride Level 107, Carbon Dioxide Level 23, Anion Gap 8, Blood Urea Nitrogen 25H, Creatinine 1.8H, Estimat Glomerular Filtration Rate 38.7, Glucose Level 98, Calcium Level 9.1 Current Medications Medications (Trade) Dose Ordered Sig/Lorena Route PRN Reason Start Time Stop Time Status Last Admin Dose Admin Acetaminophen (Tylenol) 650 mg Q6H PRN ORAL Mild Pain/Temp > 100.5 12/14/17 22:45 01/13/18 22:44 12/16/17 01:14 Acetaminophen/ Hydrocodone Bitart ([place] 10/325) 1 tab Q4H PRN ORAL For Moderate Pain 12/15/17 14:28 12/22/17 14:27 12/16/17 16:10 Chlorthalidone (Chlorthalidone) 25 mg DAILY ORAL 12/17/17 09:00 01/16/18 08:59 12/18/17 09:16 Docusate Sodium (Colace) 100 mg TWICE A DAY ORAL 12/15/17 09:00 01/14/18 08:59 12/17/17 17:18 Duloxetine HCl (Cymbalta) 60 mg DAILY ORAL 12/17/17 09:00 01/16/18 08:59 12/18/17 09:16 Efavirenz (Sustiva) 600 mg Q24H ORAL 12/15/17 21:00 01/14/18 20:59 12/17/17 20:33 Emtricitabine/ Tenofovir (Truvada 200/ 300mg) 1 tab Q48H ORAL 12/15/17 21:00 01/14/18 20:59 12/17/17 20:34 Ertapenem 1 gm/ Sodium Chloride 110 ml @ 220 mls/hr Q24H IVPB 12/16/17 16:00 12/20/17 15:59 12/17/17 15:08 Heparin Sodium (Porcine) (Heparin 5000 units/ml) 5,000 units EVERY 12 HOURS SUBQ 12/15/17 09:00 01/14/18 08:59 12/18/17 09:18 Lisinopril (Zestril) 10 mg BEDTIME ORAL 12/16/17 21:00 01/13/18 23:07 12/17/17 20:34 Morphine Sulfate (Morphine Sulfate) 4 mg Q4H PRN IVP For Severe Pain 12/15/17 14:29 12/22/17 14:28 12/18/17 01:54 Ondansetron HCl (Zofran) 4 mg EVERY 4 HOURS PRN IVP Nausea & Vomiting 12/14/17 22:45 01/13/18 22:44 Patient Own Medication (Patient's Own Med) 1 ea DAILY ORAL 12/17/17 09:00 01/16/18 08:59 UNV Sodium Chloride 1,000 ml @ 100 mls/hr Q10H IV 12/14/17 22:45 01/13/18 22:44 12/18/17 06:14 Zolpidem Tartrate (Ambien) 10 mg HSPRN PRN ORAL Insomnia 12/16/17 14:30 12/22/17 00:44 12/18/17 01:53 Paulo Gibbons MD December 18, 2017 10:37
[2017-12-18 12:00] VITALS: BP 114/67
--- NOTE | 2017-12-18 13:47 | Nephrology Progress Note ---
Assessment/Plan Problem List: (1) Acute on chronic renal failure Assessment: no change (2) UTI (urinary tract infection) (3) ESBL (extended spectrum beta-lactamase) producing bacteria infection (4) HIV (human immunodeficiency virus infection) Assessment Renal US unremarkable Plan IVF abxs follow BMP Subjective Subjective feels ok Objective Objective Last 24 Hour Vital Signs Date Time Temp Pulse Resp B/P (MAP) Pulse Ox O2 Delivery O2 Flow Rate FiO2 12/18/17 12:00 97.2 52 20 114/67 97 97.2 12/18/17 08:00 97.0 59 20 115/66 96 97.0 12/18/17 04:00 98.4 52 20 115/71 97 98.4 12/18/17 00:00 97.9 59 20 130/82 97 97.9 12/17/17 20:34 135/84 12/17/17 20:00 98.4 59 20 138/84 100 98.4 12/17/17 16:06 98.3 55 23 117/78 99 Room Air 98.3 Intake and Output 12/17/17 12/18/17 19:00 07:00 Intake Total 2040 ml 900 ml Balance 2040 ml 900 ml Intake Oral 780 ml IV Total 1260 ml 900 ml # Voids 3 Laboratory Tests 12/18/17 06:30: White Blood Count 7.1, Red Blood Count 3.30L, Hemoglobin 11.0L, Hematocrit 32.4L , Mean Corpuscular Volume 98, Mean Corpuscular Hemoglobin 33.2H, Mean Corpuscular Hemoglobin Concent 33.8, Red Cell Distribution Width 10.9L, Platelet Count 285, Mean Platelet Volume 5.0L, Neutrophils (%) (Auto) 41.9L, Lymphocytes (%) (Auto) 45.7H, Monocytes (%) (Auto) 7.9, Eosinophils (%) (Auto) 3.3H, Basophils (%) (Auto) 1.2, Sodium Level 138, Potassium Level 4.9, Chloride Level 107, Carbon Dioxide Level 23, Anion Gap 8, Blood Urea Nitrogen 25H, Creatinine 1.8H, Estimat Glomerular Filtration Rate 38.7, Glucose Level 98, Calcium Level 9.1 Height (Feet): 5 Height (Inches): 8.00 Weight (Pounds): 170 Cardiovascular: normal rate Respiratory/Chest: lungs clear Extremities: other - no edema Rahban,Sriram MD December 18, 2017 13:47
[2017-12-18] MEDS ORDERED: INVANZ1 G1 IM (14:27)
[2017-12-18 16:00] VITALS: BP 137/81
[2017-12-18] MEDS: Ertapenem 1 GM in NS 110 ML IVPB SCH (16:29)
--- NOTE | 2017-12-18 18:57 | Infectious Diseases Prog Note ---
Assessment/Plan Assessment/Plan ASSESSMENT AND PLAN: 1. e.coli uti/pyelonephritis, sepsis, leukocytosis, fevers, us noted - clinically better, less urinary symptoms, fevers better, leukocytosis better - Ertapenem - day # 4, plan on 10 day treatment course - d/w Surekha Bailey NP about abx tx course - d/w patient 2. HIV - continue atripla combination, cd4/viral load stable 3. Acute kidney injury with elevated creatinine -cr improved 4. Anemia. 5. The patient is on Cymbalta, unclear the exact reason, 6. Hypertension. Continue blood pressure treatment primary per primary. 7. No known allergies. 8. Social history is negative. 9. Family history is noncontributory. 10. MAR was noted. 11. Case was discussed with RN. 12. Case was discussed with pharmacy. 13. Continue treatment per primary consultants. 14. Notes and records were noted. 15. Orders were entered. Subjective Constitutional: Denies: fever, fatigue HEENT: Denies: congestion Respiratory: Denies: shortness of breath Cardiovascular: Denies: chest pain, palpitations Gastrointestinal/Abdominal: Denies: nausea, vomiting, diarrhea Genitourinary: Reports: dysuria - less, frequency - less Psychiatric: Denies: depression Skin: Denies: rash Hematologic: Denies: bleeding Musculoskeletal: Denies: pain Allergies: Coded Allergies: No Known Allergies (Unverified , 06/29/17) Objective Vital Signs Last 24 Hour Vital Signs Date Time Temp Pulse Resp B/P (MAP) Pulse Ox O2 Delivery O2 Flow Rate FiO2 12/18/17 16:00 97.3 56 20 137/81 99 97.3 12/18/17 12:00 97.2 52 20 114/67 97 97.2 12/18/17 08:00 97.0 59 20 115/66 96 97.0 12/18/17 04:00 98.4 52 20 115/71 97 98.4 12/18/17 00:00 97.9 59 20 130/82 97 97.9 12/17/17 20:34 135/84 12/17/17 20:00 98.4 59 20 138/84 100 98.4 Height (Feet): 5 Height (Inches): 8.00 Weight (Pounds): 170 General Appearance: no acute distress HEENT: normocephalic, atraumatic, anicteric, mucous membranes moist Respiratory/Chest: lungs clear, normal breath sounds, no respiratory distress, no accessory muscle use Cardiovascular: normal rate, regular rhythm, no gallop/murmur, no JVD Abdomen: normal bowel sounds, soft, non tender, no organomegaly, non distended Genitourinary: other - no griffith, no cva pain Extremities: no cyanosis Skin: no rash Neurologic/Psychiatric: stem sizer II-XII grossly normal, alert Lymphatic: no neck adenopathy Musculoskeletal: no effusion Objective Chest x-ray - negative pna (report noted) Renal ultrasound -- FINDINGS: Right kidney: The right kidney measures 11.9 x 5.9 cm. No stones. No hydronephrosis. Normal echogenicity. Left kidney: Trace left-sided perinephric fluid. A 1.3 x 1.2 cm simple-appearing cyst is seen in the mid left kidney. The left kidney measures 11.1 x 4.9 cm. No stones. No hydronephrosis. Normal echogenicity. Bladder: Prevoid urinary bladder volume of 408 cc. Postvoid urinary bladder volume of 55 cc. Bilateral ureteral jets were identified with Doppler interrogation. IMPRESSION: 1. Trace left-sided perinephric fluid. 2. A 1.3 x 1.2 cm simple-appearing cyst in the mid left kidney. Microbiology Date/Time Source Procedure Growth Status 12/14/17 20:55 Blood Blood Culture - Preliminary NO GROWTH AFTER 72 HOURS Resulted 12/14/17 20:30 Indwelling Cath Urine Culture - Final Escherichia Coli Complete Laboratory Tests Test 12/18/17 06:30 White Blood Count 7.1 K/UL (4.8-10.8) Red Blood Count 3.30 M/UL (4.70-6.10) L Hemoglobin 11.0 G/DL (14.2-18.0) L Hematocrit 32.4 % (42.0-52.0) L Mean Corpuscular Volume 98 FL (80-99) Mean Corpuscular Hemoglobin 33.2 PG (27.0-31.0) H Mean Corpuscular Hemoglobin Concent 33.8 G/DL (32.0-36.0) Red Cell Distribution Width 10.9 % (11.6-14.8) L Platelet Count 285 K/UL (150-450) Mean Platelet Volume 5.0 FL (6.5-10.1) L Neutrophils (%) (Auto) 41.9 % (45.0-75.0) L Lymphocytes (%) (Auto) 45.7 % (20.0-45.0) H Monocytes (%) (Auto) 7.9 % (1.0-10.0) Eosinophils (%) (Auto) 3.3 % (0.0-3.0) H Basophils (%) (Auto) 1.2 % (0.0-2.0) Sodium Level 138 MMOL/L (136-145) Potassium Level 4.9 MMOL/L (3.5-5.1) Chloride Level 107 MMOL/L (98-107) Carbon Dioxide Level 23 MMOL/L (21-32) Anion Gap 8 mmol/L (5-15) Blood Urea Nitrogen 25 mg/dL (7-18) H Creatinine 1.8 MG/DL (0.55-1.30) H Estimat Glomerular Filtration Rate 38.7 mL/min (>60) Glucose Level 98 MG/DL (74-106) Calcium Level 9.1 MG/DL (8.5-10.1) Current Medications Medications (Trade) Dose Ordered Sig/Lorena Route PRN Reason Start Time Stop Time Status Last Admin Dose Admin Acetaminophen (Tylenol) 650 mg Q6H PRN ORAL Mild Pain/Temp > 100.5 12/14/17 22:45 01/13/18 22:44 12/16/17 01:14 Acetaminophen/ Hydrocodone Bitart ([place] 10/325) 1 tab Q4H PRN ORAL For Moderate Pain 12/15/17 14:28 12/22/17 14:27 12/16/17 16:10 Docusate Sodium (Colace) 100 mg TWICE A DAY ORAL 12/15/17 09:00 01/14/18 08:59 12/17/17 17:18 Duloxetine HCl (Cymbalta) 60 mg DAILY ORAL 12/17/17 09:00 01/16/18 08:59 12/18/17 09:16 Efavirenz (Sustiva) 600 mg Q24H ORAL 12/15/17 21:00 01/14/18 20:59 12/17/17 20:33 Emtricitabine/ Tenofovir (Truvada 200/ 300mg) 1 tab Q48H ORAL 12/15/17 21:00 01/14/18 20:59 12/17/17 20:34 Ertapenem 1 gm/ Sodium Chloride 110 ml @ 220 mls/hr Q24H IVPB 12/16/17 16:00 12/20/17 15:59 12/18/17 16:29 Heparin Sodium (Porcine) (Heparin 5000 units/ml) 5,000 units EVERY 12 HOURS SUBQ 12/15/17 09:00 01/14/18 08:59 12/18/17 09:18 Lisinopril (Zestril) 10 mg BEDTIME ORAL 12/16/17 21:00 01/13/18 23:07 12/17/17 20:34 Morphine Sulfate (Morphine Sulfate) 4 mg Q4H PRN IVP For Severe Pain 12/15/17 14:29 12/22/17 14:28 12/18/17 01:54 Ondansetron HCl (Zofran) 4 mg EVERY 4 HOURS PRN IVP Nausea & Vomiting 12/14/17 22:45 01/13/18 22:44 Patient Own Medication (Patient's Own Med) 1 ea DAILY ORAL 12/17/17 09:00 01/16/18 08:59 UNV Sodium Chloride 1,000 ml @ 100 mls/hr Q10H IV 12/14/17 22:45 01/13/18 22:44 12/18/17 16:29 Zolpidem Tartrate (Ambien) 10 mg HSPRN PRN ORAL Insomnia 12/16/17 14:30 12/22/17 00:44 12/18/17 01:53 Ramu Hodges MD December 18, 2017 18:57
[2017-12-18 20:51] VITALS: BP 134/86
[2017-12-18] MEDS: Efavirenz 200mg cap ORAL SCH (21:13)
[2017-12-18] MEDS: Lisinopril 10mg tab ORAL SCH (21:14)
[2017-12-18] MEDS: HYDROcodone/Acetamin 10/325 tab ORAL PRN (21:19)
--- NOTE | 2017-12-18 23:19 | General Progress Note ---
Assessment/Plan Problem List: (1) ESBL (extended spectrum beta-lactamase) producing bacteria infection ICD Codes: A49.9 - Bacterial infection, unspecified; Z16.12 - Extended spectrum beta lactamase (ESBL) resistance SNOMED: 417222810, 908110841 (2) Renal insufficiency ICD Codes: N28.9 - Disorder of kidney and ureter, unspecified SNOMED: 164099712, 261765096 (3) Sepsis ICD Codes: A41.9 - Sepsis, unspecified organism SNOMED: 39786710 (4) HIV (human immunodeficiency virus infection) ICD Codes: B20 - Human immunodeficiency virus [HIV] disease SNOMED: 38156913 (5) UTI (urinary tract infection) ICD Codes: N39.0 - Urinary tract infection, site not specified SNOMED: 54114299, 935905812 Qualifiers: Qualified Codes: N39.0 - Urinary tract infection, site not specified Status: stable, progressing Assessment/Plan - ID and nephrology consulted, appreciate rec's - IV ertapenam 1g qd x 10 days (D3) - F/u repeat urine cx in hospital -- ESBL - renal ultrasound unremarkable - Attempted to contact patient's PCP, Dr Ramón Means [phone] for patient' s baseline Cr -- unsuccessful. left vm - Continue home HIV meds - Check lymphocyte panel/CD 4 count - IVF - pain control and supportive care PATIENT IS MEDICALLY CLEARED FOR DISCHARGE WITH HOME INFUSION FOR CONTINUED IV ANTIBIOTICS ONCE THE IV INFUSION COMPANY IS SET UP. DVT Prophylaxis: SCD, HSQ Code Status: Full Hospital Classification Declaration: Based on this initial evaluation, and depending on the patient's clinical course, I anticipate that this patient will require hospitalization for 2-3 days for ESBL UTI, sepsis, and close respiratory /hemodynamic monitoring. Disposition: Once the patient is stable to leave the hospital, I anticipate the patient will likely be discharged to the following environment: home with Subjective Date patient seen: December 18, 2017 Time patient seen: 12:00 Allergies: Coded Allergies: No Known Allergies (Unverified , 06/29/17) Subjective - AF, HDS - deneis dysuria, fevers/chills/cp, sob - pending set up with IV infusion for home IV infusion Objective Last 24 Hour Vital Signs Date Time Temp Pulse Resp B/P (MAP) Pulse Ox O2 Delivery O2 Flow Rate FiO2 12/18/17 21:14 134/86 12/18/17 20:51 97.6 64 20 134/86 100 97.6 12/18/17 16:00 97.3 56 20 137/81 99 97.3 12/18/17 12:00 97.2 52 20 114/67 97 97.2 12/18/17 08:00 97.0 59 20 115/66 96 97.0 12/18/17 04:00 98.4 52 20 115/71 97 98.4 12/18/17 00:00 97.9 59 20 130/82 97 97.9 Intake and Output 12/17/17 12/18/17 19:00 07:00 Intake Total 2040 ml 900 ml Balance 2040 ml 900 ml Intake Oral 780 ml IV Total 1260 ml 900 ml # Voids 3 Laboratory Tests 12/18/17 06:30: White Blood Count 7.1, Red Blood Count 3.30L, Hemoglobin 11.0L, Hematocrit 32.4L , Mean Corpuscular Volume 98, Mean Corpuscular Hemoglobin 33.2H, Mean Corpuscular Hemoglobin Concent 33.8, Red Cell Distribution Width 10.9L, Platelet Count 285, Mean Platelet Volume 5.0L, Neutrophils (%) (Auto) 41.9L, Lymphocytes (%) (Auto) 45.7H, Monocytes (%) (Auto) 7.9, Eosinophils (%) (Auto) 3.3H, Basophils (%) (Auto) 1.2, Sodium Level 138, Potassium Level 4.9, Chloride Level 107, Carbon Dioxide Level 23, Anion Gap 8, Blood Urea Nitrogen 25H, Creatinine 1.8H, Estimat Glomerular Filtration Rate 38.7, Glucose Level 98, Calcium Level 9.1 Height (Feet): 5 Height (Inches): 8.00 Weight (Pounds): 170 General Appearance: no apparent distress, alert EENT: PERRL/EOMI, normal ENT inspection Neck: non-tender, normal alignment, supple Cardiovascular: normal peripheral pulses, normal rate, regular rhythm Respiratory/Chest: chest wall non-tender, lungs clear, normal breath sounds Abdomen: normal bowel sounds, non tender, soft Extremities: normal range of motion, non-tender Neurologic: washer machine II-XII grossly normal, no motor/sensory deficits, alert, oriented x 3 Skin: normal pigmentation, warm/dry Leo,Surekha FOAM MOLDER December 18, 2017 23:19
[2017-12-19 00:33] VITALS: BP 131/79
[2017-12-19] MEDS: Zolpidem 5mg tab ORAL PRN (01:28)
[2017-12-19 04:17] VITALS: BP 130/79
[2017-12-19] MEDS: HYDROcodone/Acetamin 10/325 tab ORAL PRN (05:28)
[2017-12-19 08:00] VITALS: BP 113/64
[2017-12-19] MEDS: Docusate 100mg cap ORAL SCH (09:00)
[2017-12-19] MEDS: DULoxetine 30mg cap ORAL SCH (09:06)
[2017-12-19] MEDS: Heparin 5000 units/ml inj SUBQ SCH (09:08)
[2017-12-19 11:06] LABS: BASOPHILS % (AUTO) 1.4 % (0.0-2.0); EOSINOPHILS % (AUTO) 3.4 % (0.0-3.0); HEMATOCRIT 33.6 % (42.0-52.0); HEMOGLOBIN 11.4 G/DL (14.2-18.0); LYMPHOCYTES % (AUTO) 46.3 % (20.0-45.0); MEAN CORPUSCULAR VOLUME 98 FL (80-99); MONOCYTES % (AUTO) 7.1 % (1.0-10.0); NEUTROPHILS % (AUTO) 41.8 % (45.0-75.0); PLATELET COUNT 328 K/UL (150-450); RED BLOOD COUNT 3.42 M/UL (4.70-6.10); RED CELL DISTRIBUTION WIDTH 10.7 % (11.6-14.8); WHITE BLOOD COUNT 6.7 K/UL (4.8-10.8)
[2017-12-19 11:34] LABS: ANION GAP 10 mmol/L (5-15); BLOOD UREA NITROGEN 24 mg/dL (7-18); CALCIUM 9.5 MG/DL (8.5-10.1); CARBON DIOXIDE 23 MMOL/L (21-32); CHLORIDE 106 MMOL/L (98-107); CREATININE 1.7 MG/DL (0.55-1.30); POTASSIUM 4.2 MMOL/L (3.5-5.1); SODIUM 139 MMOL/L (136-145)
--- NOTE | 2017-12-19 14:43 | Nephrology Progress Note ---
Assessment/Plan Problem List: (1) Acute on chronic renal failure Assessment: no change (2) UTI (urinary tract infection) (3) ESBL (extended spectrum beta-lactamase) producing bacteria infection (4) HIV (human immunodeficiency virus infection) Assessment Renal US unremarkable Plan cont as is DC today Subjective Subjective feels ok Objective Objective Last 24 Hour Vital Signs Date Time Temp Pulse Resp B/P (MAP) Pulse Ox O2 Delivery O2 Flow Rate FiO2 12/19/17 08:00 98.1 57 20 113/64 95 98.1 12/19/17 04:17 98.0 61 19 130/79 99 98.0 12/19/17 00:33 97.9 61 19 131/79 100 97.9 12/18/17 21:14 134/86 12/18/17 20:51 97.6 64 20 134/86 100 97.6 12/18/17 16:00 97.3 56 20 137/81 99 97.3 Intake and Output 12/18/17 12/19/17 19:00 07:00 Intake Total 1470 ml 400 ml Balance 1470 ml 400 ml Intake Oral 260 ml IV Total 1210 ml 400 ml # Voids 4 3 Laboratory Tests 12/19/17 10:50: White Blood Count 6.7, Red Blood Count 3.42L, Hemoglobin 11.4L, Hematocrit 33.6L , Mean Corpuscular Volume 98, Mean Corpuscular Hemoglobin 33.3H, Mean Corpuscular Hemoglobin Concent 34.0, Red Cell Distribution Width 10.7L, Platelet Count 328, Mean Platelet Volume 4.9L, Neutrophils (%) (Auto) 41.8L, Lymphocytes (%) (Auto) 46.3H, Monocytes (%) (Auto) 7.1, Eosinophils (%) (Auto) 3.4H, Basophils (%) (Auto) 1.4, Sodium Level 139, Potassium Level 4.2, Chloride Level 106, Carbon Dioxide Level 23, Anion Gap 10, Blood Urea Nitrogen 24H, Creatinine 1.7H, Estimat Glomerular Filtration Rate 41.3, Glucose Level 115H, Calcium Level 9.5 Height (Feet): 5 Height (Inches): 8.00 Weight (Pounds): 170 Cardiovascular: normal rate Respiratory/Chest: lungs clear Sriram Tesfaye MD December 19, 2017 14:43
--- NOTE | 2017-12-19 14:55 | Infectious Diseases Prog Note ---
Assessment/Plan Assessment/Plan ASSESSMENT AND PLAN: 1. e.coli uti/pyelonephritis, sepsis, leukocytosis, fevers, us noted - clinically better, less urinary symptoms, fevers resolved, leukocytosis resolved - Ertapenem - day # 5, plan on 10 day treatment course - d/w Surekha Bailey NP about abx tx course - d/w patient 2. HIV - continue atripla combination, cd4/viral load stable 3. Acute kidney injury with elevated creatinine -cr improved 4. Anemia. 5. The patient is on Cymbalta, unclear the exact reason, 6. Hypertension. Continue blood pressure treatment primary per primary. 7. No known allergies. 8. Social history is negative. 9. Family history is noncontributory. 10. MAR was noted. 11. Case was discussed with RN. 12. Case was discussed with pharmacy. 13. Continue treatment per primary consultants. 14. Notes and records were noted. 15. Orders were entered. Subjective Constitutional: Denies: fever, fatigue HEENT: Denies: congestion Respiratory: Denies: shortness of breath Cardiovascular: Denies: chest pain Gastrointestinal/Abdominal: Denies: nausea, vomiting, diarrhea Genitourinary: Denies: dysuria Neurologic: Denies: headache Psychiatric: Denies: depression Skin: Denies: rash Hematologic: Denies: bleeding Musculoskeletal: Denies: pain Allergies: Coded Allergies: No Known Allergies (Unverified , 06/29/17) Objective Vital Signs Last 24 Hour Vital Signs Date Time Temp Pulse Resp B/P (MAP) Pulse Ox O2 Delivery O2 Flow Rate FiO2 12/19/17 08:00 98.1 57 20 113/64 95 98.1 12/19/17 04:17 98.0 61 19 130/79 99 98.0 12/19/17 00:33 97.9 61 19 131/79 100 97.9 12/18/17 21:14 134/86 12/18/17 20:51 97.6 64 20 134/86 100 97.6 12/18/17 16:00 97.3 56 20 137/81 99 97.3 Height (Feet): 5 Height (Inches): 8.00 Weight (Pounds): 170 General Appearance: no acute distress HEENT: normocephalic, atraumatic, anicteric, mucous membranes moist Respiratory/Chest: lungs clear, normal breath sounds, no respiratory distress, no accessory muscle use Cardiovascular: normal rate, regular rhythm, no gallop/murmur, no JVD Abdomen: normal bowel sounds, soft, non tender, no organomegaly, non distended Genitourinary: other - no griffith Extremities: no cyanosis Skin: no rash Neurologic/Psychiatric: chief deputy II-XII grossly normal, alert, oriented x 3, responsive Lymphatic: no neck adenopathy Musculoskeletal: no effusion Objective Chest x-ray - negative pna (report noted) Renal ultrasound -- FINDINGS: Right kidney: The right kidney measures 11.9 x 5.9 cm. No stones. No hydronephrosis. Normal echogenicity. Left kidney: Trace left-sided perinephric fluid. A 1.3 x 1.2 cm simple-appearing cyst is seen in the mid left kidney. The left kidney measures 11.1 x 4.9 cm. No stones. No hydronephrosis. Normal echogenicity. Bladder: Prevoid urinary bladder volume of 408 cc. Postvoid urinary bladder volume of 55 cc. Bilateral ureteral jets were identified with Doppler interrogation. IMPRESSION: 1. Trace left-sided perinephric fluid. 2. A 1.3 x 1.2 cm simple-appearing cyst in the mid left kidney. Microbiology Date/Time Source Procedure Growth Status 12/14/17 20:55 Blood Blood Culture - Preliminary NO GROWTH AFTER 4 DAYS Resulted 12/14/17 20:30 Indwelling Cath Urine Culture - Final Escherichia Coli Complete Laboratory Tests Test 12/19/17 10:50 White Blood Count 6.7 K/UL (4.8-10.8) Red Blood Count 3.42 M/UL (4.70-6.10) L Hemoglobin 11.4 G/DL (14.2-18.0) L Hematocrit 33.6 % (42.0-52.0) L Mean Corpuscular Volume 98 FL (80-99) Mean Corpuscular Hemoglobin 33.3 PG (27.0-31.0) H Mean Corpuscular Hemoglobin Concent 34.0 G/DL (32.0-36.0) Red Cell Distribution Width 10.7 % (11.6-14.8) L Platelet Count 328 K/UL (150-450) Mean Platelet Volume 4.9 FL (6.5-10.1) L Neutrophils (%) (Auto) 41.8 % (45.0-75.0) L Lymphocytes (%) (Auto) 46.3 % (20.0-45.0) H Monocytes (%) (Auto) 7.1 % (1.0-10.0) Eosinophils (%) (Auto) 3.4 % (0.0-3.0) H Basophils (%) (Auto) 1.4 % (0.0-2.0) Sodium Level 139 MMOL/L (136-145) Potassium Level 4.2 MMOL/L (3.5-5.1) Chloride Level 106 MMOL/L (98-107) Carbon Dioxide Level 23 MMOL/L (21-32) Anion Gap 10 mmol/L (5-15) Blood Urea Nitrogen 24 mg/dL (7-18) H Creatinine 1.7 MG/DL (0.55-1.30) H Estimat Glomerular Filtration Rate 41.3 mL/min (>60) Glucose Level 115 MG/DL (74-106) H Calcium Level 9.5 MG/DL (8.5-10.1) Current Medications Medications (Trade) Dose Ordered Sig/Lorena Route PRN Reason Start Time Stop Time Status Last Admin Dose Admin Acetaminophen (Tylenol) 650 mg Q6H PRN ORAL Mild Pain/Temp > 100.5 12/14/17 22:45 01/13/18 22:44 12/16/17 01:14 Acetaminophen/ Hydrocodone Bitart ([place] 10/325) 1 tab Q4H PRN ORAL For Moderate Pain 12/15/17 14:28 12/22/17 14:27 12/19/17 05:28 Chlorthalidone (Chlorthalidone) 25 mg BEDTIME ORAL 12/18/17 21:00 01/17/18 20:59 12/18/17 21:14 Docusate Sodium (Colace) 100 mg TWICE A DAY ORAL 12/15/17 09:00 01/14/18 08:59 12/17/17 17:18 Duloxetine HCl (Cymbalta) 60 mg DAILY ORAL 12/17/17 09:00 01/16/18 08:59 12/19/17 09:06 Efavirenz (Sustiva) 600 mg Q24H ORAL 12/15/17 21:00 01/14/18 20:59 12/18/17 21:13 Emtricitabine/ Tenofovir (Truvada 200/ 300mg) 1 tab Q48H ORAL 12/15/17 21:00 01/14/18 20:59 12/17/17 20:34 Ertapenem 1 gm/ Sodium Chloride 110 ml @ 220 mls/hr Q24H IVPB 12/19/17 16:00 12/23/17 15:59 Heparin Sodium (Porcine) (Heparin 5000 units/ml) 5,000 units EVERY 12 HOURS SUBQ 12/15/17 09:00 01/14/18 08:59 12/19/17 09:08 Lisinopril (Zestril) 10 mg BEDTIME ORAL 12/16/17 21:00 01/13/18 23:07 12/18/17 21:14 Morphine Sulfate (Morphine Sulfate) 4 mg Q4H PRN IVP For Severe Pain 12/15/17 14:29 12/22/17 14:28 12/18/17 01:54 Ondansetron HCl (Zofran) 4 mg EVERY 4 HOURS PRN IVP Nausea & Vomiting 12/14/17 22:45 01/13/18 22:44 Patient Own Medication (Patient's Own Med) 1 ea DAILY ORAL 12/17/17 09:00 01/16/18 08:59 UNV Sodium Chloride 1,000 ml @ 100 mls/hr Q10H IV 12/14/17 22:45 01/13/18 22:44 12/19/17 02:54 Zolpidem Tartrate (Ambien) 10 mg HSPRN PRN ORAL Insomnia 12/16/17 14:30 12/22/17 00:44 12/19/17 01:28 Ramu Hodges MD December 19, 2017 14:55
[2017-12-19] MEDS ORDERED: Ertapenem 1 GM in NS 110 ML IVPB SCH (16:00)
[2017-12-19] MEDS ORDERED: D5NS 1000ml IV ONE (16:49)
--- NOTE | 2017-12-19 22:48 | Discharge Summary ---
Discharge Summary Hospital Course Date of Admission December 14, 2017 at 20:08 Date of Discharge December 19, 2017 at 16:50 Admitting Diagnosis multi drug resistant UTI HPI Syed Cardozo is a 62 year old male who was admitted on December 14, 2017 at 20: 08 for Multi Drug Resistant Urinary Tract Infection This is a 62 y/o male with a PMH of HIV (viral load undetectable, CD 4>1000) who presents to the ED for ESBL UTI. Patient states that he had gone to his PCP for dysuria and was diagnosed with a UTI. Urine culture came back positive for ESBL, which was sensitive to carbapenams. Patient was advised to come to the ED for further evaluation. Patient was started on IV zosyn and IVF. Patient was also noted to have an elevated Cr with an unknown baseline. Patient is currently compliant with his HIV medications. Denies chest pain, sob, dysuria, hematuria, flank pain, n/v, abdominal pain. Reports history of bilateral nephrolithiasis, which passed on their own. Consultations ID Nephrology Hospital Course Patient was admitted to inpatient and started on IV ertapenam. Home medications including HIV meds were continued. Urine culture repeat was obtained which showed ESBL urine sensitive to carbapenams. ID and nephrology consultations were requested. Patient's Cr was elevated but continued to downtrend with IVF. Renal ultrasound was unremarkable. Patient's dysuria, flank pain, n/v, f/c resolved with IV antibiotics. Patient was therefore hemodynamically stable for discharge with IV antibiotics for a total of 10 day course of IV ertapenam. Patient was advised to follow up with his PCP within 1 week and repeat BMP. Discharge Medications New Medications: Ertapenem (Invanz) 1 Gm Vial 1 GM IM DAILY for 7 Days, #7 VIAL Continued Medications: Codeine/Promethazine Hcl* (Promethazine-Codeine Syrup*) 118 Ml Syrup 10 ML ORAL Q6H PRN for For Cough, #120 ML 0 Refills Duloxetine Hcl* (Cymbalta*) 60 Mg Capsule. 60 MG ORAL QHS, CAP (This prescription has been renewed) Efavirenz/Emtricitab/Tenofovir (Atripla) 1 Each Tablet 1 TAB ORAL DAILY, TAB (This prescription has been renewed) Lisinopril (Lisinopril*) 5 Mg Tablet 5 MG ORAL DAILY, TAB (This prescription has been renewed) Prednisone* (Prednisone*) 20 Mg Tablet 60 MG ORAL DAILY, #15 TAB Zolpidem Tartrate* (Ambien*) 5 Mg Tablet 10 MG ORAL BEDTIME PRN for Insomnia, TAB Discharge Condition Upon Discharge: improving, stable Discharge Disposition Patient was discharged to Home with Home Health(06) Discharge Diagnoses: (1) Acute on chronic renal failure (2) HIV (human immunodeficiency virus infection) (3) Sepsis Surekha Bailey NP December 19, 2017 22:48
== END 2017-12-19 16:50 | disposition home health service (06) | DRG 975 ==
LOC: EMR 19:40 → 4E 20:08 → EDBEDREQ 20:46
DX: A41.9 Sepsis, unspecified organism (principal); B20 Human immunodeficiency virus [HIV] disease; N39.0 Urinary tract infection, site not specified; N17.9 Acute kidney failure, unspecified; B96.20 Unspecified Escherichia coli [E. coli] as the cause of diseases classified elsewhere; Z16.12 Extended spectrum beta lactamase (ESBL) resistance; F19.11 Other psychoactive substance abuse, in remission; Z86.19 Personal history of other infectious and parasitic diseases; D64.9 Anemia, unspecified; I12.9 Hypertensive chronic kidney disease with stage 1 through stage 4 chronic kidney disease, or unspecified chronic kidney disease; N18.9 Chronic kidney disease, unspecified
CPT/HCPCS: 36415; 71045; 76770; 80048; 80053; 81003; 82570; 83605; 83970; 84100; 84300; 85025; 86360; 87040; 87086; 87181; 99285